=== PATIENT | male | born 1940 | race Caucasian/White ===

== ENCOUNTER 2018-04-29 23:03 | Inpatient (IN) | payer MEDICARE ==
[~2018-04-29] VITALS: Ht 182.9 cm; Wt 202.8 kg
[~2018-04-29 23:03] MED LIST: ASCO500; ASCO500 PO; ATEN25; CEPH500 PO; CHOL10002 PO; CIPR500 PO; FINA5 PO; FISH OIL OMEGA1 EAC2 PO; FLUC100 PO; FURO40 PO; GLIP10ER PO; GLIP5 PO; IBUHYD; METO10 PO; METR500 PO; MULVITMINF; NYST100P TOP; NYST100TO TOP; OMEP10ER; OMEP40CA12 PO; OTC ANTIDIARRHEAL; OXYC10TA19 PO; PIOG15; POTCHL20ER; POTCIT10 PO; SERT50; SITA100T2 PO; SITA25T2 PO; SULTRIDS PO; TAMS.4ER PO; VIT D3 IV; Vibramycin100 MG PO; ZINC220; [UNRECOGNIZED DRUG - CODE]; [UNRECOGNIZED DRUG - OTHER] PO
[2018-04-29 23:42] LABS: BASOPHILS ABSOLUTE AUTO 0.01 K/mm3 (0.00-0.23); BASOPHILS PERCENT AUTO 0 % (0-2); Hemoglobin 11.5 g/dL (13.5-17.5); LYMPHOCYTES ABSOLUTE AUTO 0.31 K/mm3 (0.84-5.20); LYMPHOCYTES PERCENT AUTO 4 % (21-46); MONOCYTES ABSOLUTE AUTO 0.25 K/mm3 (0.16-1.47); MONOCYTES PERCENT AUTO 3 % (4-13); Mean Corpuscular HGB 30.2 pg (26.0-34.0); Mean Corpuscular HGB Conc 33.8 g/dL (31.5-36.5); Mean Corpuscular Volume 89 fL (80-100); Mean Platelet Volume 10.8 fL (9.1-12.4); Platelet Count 149 K/mm3 (150-400); RDW Coefficient Variation 13.6 % (11.7-14.2); RDW Standard Deviation 44.4 fL (35.1-46.3); Red Blood Cell Count 3.81 M/mm3 (4.30-5.90); White Blood Cell Count 7.86 K/mm3 (4.00-11.30)
[2018-04-29 23:46] LABS: EOSINOPHILS PERCENT AUTO 0 % (0-6); IMMATURE GRAN ABSOLUTE AUTO 0.04 K/mm3 (0.00-0.10); IMMATURE GRAN PERCENT AUTO 1 % (0-1); NEUTROPHILS ABSOLUTE AUTO 7.25 K/mm3 (1.96-9.15); NEUTROPHILS PERCENT AUTO 92 % (41-73)
[2018-04-29 23:52] LABS: Albumin, Blood 2.3 g/dL (3.4-5.0); Albumin/Globulin Ratio 0.5 (0.8-1.8); Bilirubin, Total 1.5 mg/dL (0.1-1.0); Bun/Creatinine Ratio 19.9 (12.0-20.0); Calcium, Blood 7.6 mg/dL (8.5-10.1); Creatinine, Blood 2.01 mg/dL (0.60-1.20); Globulin, Blood 4.3 g/dL (2.2-4.0); Potassium, Blood 4.6 mmol/L (3.5-5.5); Total Protein, Blood 6.6 g/dL (6.4-8.2)
[2018-04-30 00:47] LABS: Source, Urine Clean Catch
[2018-04-30 00:51] LABS: Bilirubin, Urine Neg (Neg); Blood, Urine 5+ (Neg); Glucose Qualitative, Urine Neg (Neg); Ketones, Urine Neg (Neg); Leukocyte Esterase, Urine 1+ (Neg); Nitrite, Urine Neg (Neg); Protein, Urine 3+ (Neg); Specific Gravity, Urine 1.015 (1.003-1.022); Urobilinogen, Urine NORM (Normal)
[2018-04-30 00:59] LABS: Appearance, Urine Clear (Clear); Color, Urine Yellow (P-Yellow)
[2018-04-30 01:04] LABS: Squamous Epithelial Cells Not Seen /hpf (Few); White Blood Cells, Urine 0-2 /hpf (0-5)
[2018-04-30 01:05] LABS: Bacteria Few /hpf
[2018-04-30 01:06] LABS: Amorphous Light (0-Heavy); Hyaline Casts 0-2 /lpf (0-2); Red Blood Cells, Urine 25-50 /hpf (0-2)
[2018-04-30 01:07] LABS: Granular Casts 0-2 /lpf (0)
[2018-04-30 01:56] LABS: Source, Urine Clean Catch
[2018-04-30 01:59] LABS: Appearance, Urine Cloudy (Clear); Bilirubin, Urine Neg (Neg); Blood, Urine 5+ (Neg); Color, Urine Brown (P-Yellow); Glucose Qualitative, Urine Neg (Neg); Ketones, Urine Neg (Neg); Leukocyte Esterase, Urine 2+ (Neg); Nitrite, Urine Neg (Neg); Protein, Urine 3+ (Neg); Specific Gravity, Urine 1.015 (1.003-1.022); Urobilinogen, Urine NORM (Normal)
[2018-04-30 02:08] LABS: Amorphous Heavy (0-Heavy); Bacteria Mod /hpf; Granular Casts 25-50 /lpf (0); Hyaline Casts 0-2 /lpf (0-2); Red Blood Cells, Urine 50-100 /hpf (0-2); Squamous Epithelial Cells Few /hpf (Few)
[2018-04-30] MEDS ORDERED: HYDR1TAB94 PO (14:21)
[2018-04-30 23:57] LABS: Bun/Creatinine Ratio 14.5 (12.0-20.0); Calcium, Blood 6.6 mg/dL (8.5-10.1); Creatinine, Blood 3.38 mg/dL (0.60-1.20); Magnesium, Blood 1.5 mg/dL (1.6-2.4); Potassium, Blood 3.9 mmol/L (3.5-5.5)
[2018-05-01 04:27] LABS: BASOPHILS ABSOLUTE AUTO 0.05 K/mm3 (0.00-0.23); BASOPHILS PERCENT AUTO 0 % (0-2); Hematocrit 28.4 % (37.0-53.0); Hemoglobin 9.7 g/dL (13.5-17.5); LYMPHOCYTES ABSOLUTE AUTO 0.68 K/mm3 (0.84-5.20); LYMPHOCYTES PERCENT AUTO 4 % (21-46); MONOCYTES ABSOLUTE AUTO 0.68 K/mm3 (0.16-1.47); MONOCYTES PERCENT AUTO 4 % (4-13); Mean Corpuscular HGB 30.1 pg (26.0-34.0); Mean Corpuscular HGB Conc 34.2 g/dL (31.5-36.5); Mean Corpuscular Volume 88 fL (80-100); Mean Platelet Volume 10.4 fL (9.1-12.4); Platelet Count 146 K/mm3 (150-400); RDW Coefficient Variation 13.8 % (11.7-14.2); RDW Standard Deviation 44.6 fL (35.1-46.3); Red Blood Cell Count 3.22 M/mm3 (4.30-5.90); White Blood Cell Count 19.35 K/mm3 (4.00-11.30)
[2018-05-01 04:31] LABS: Bun/Creatinine Ratio 15.7 (12.0-20.0); Calcium, Blood 6.8 mg/dL (8.5-10.1); Creatinine, Blood 3.38 mg/dL (0.60-1.20); Potassium, Blood 3.8 mmol/L (3.5-5.5)
[2018-05-01 04:34] LABS: EOSINOPHILS ABSOLUTE AUTO 0.01 K/mm3 (0.00-0.68); EOSINOPHILS PERCENT AUTO 0 % (0-6); IMMATURE GRAN ABSOLUTE AUTO 1.32 K/mm3 (0.00-0.10); IMMATURE GRAN PERCENT AUTO 7 % (0-1); NEUTROPHILS ABSOLUTE AUTO 16.61 K/mm3 (1.96-9.15); NEUTROPHILS PERCENT AUTO 86 % (41-73)
[2018-05-01 04:55] LABS: BAND PERCENT MAN 10 % (0-8); BASOPHILS PERCENT MAN 0 % (0-2); EOSINOPHILS PERCENT MAN 0 % (0-6); LYMPHOCYTES ABSOLUTE MAN 0.96 K/mm3 (0.84-5.20); LYMPHOCYTES PERCENT MAN 5 % (21-46); MONOCYTES ABSOLUTE MAN 0.58 K/mm3 (0.16-1.47); MONOCYTES PERCENT MAN 3 % (4-13); SEG NEUTROPHILS PERCENT MAN 82 % (41-73); TOTAL CELLS COUNTED 100
[2018-05-01 08:43] LABS: Creatinine, Urine Random 54.8 mg/dL (27.00-270.00)
[2018-05-01 08:51] LABS: Creatinine, Urine Random 55.8 mg/dL (27.00-270.00)
[2018-05-01 08:53] LABS: Microalb/Creat Ratio UR, Rand 224.014 mg/g (0.000-30.000)
== END 2018-05-01 20:00 | disposition short-term general hospital (02) | DRG 871 ==
LOC: ER 23:03 → ICUE 04-30 02:26 → PCU 04-30 02:26 → ICUE 04-30 04:00
PROVIDERS: Emergency Medicine; Family Medicine
PROC: 02HV33Z Insertion of Infusion Device into Superior Vena Cava, Percutaneous Approach (ICD-10-PCS; principal; 2018-04-30)
PROC: 3E043XZ Introduction of Vasopressor into Central Vein, Percutaneous Approach (ICD-10-PCS; 2018-04-30)
DX: A41.1 Sepsis due to other specified staphylococcus (principal); R65.21 Severe sepsis with septic shock; G93.41 Metabolic encephalopathy; N17.9 Acute kidney failure, unspecified; Z68.44 Body mass index [BMI] 60.0-69.9, adult; L98.415 Non-pressure chronic ulcer of buttock with muscle involvement without evidence of necrosis; L03.311 Cellulitis of abdominal wall; E11.9 Type 2 diabetes mellitus without complications; Z79.4 Long term (current) use of insulin; E66.01 Morbid (severe) obesity due to excess calories; L89.159 Pressure ulcer of sacral region, unspecified stage; I12.9 Hypertensive chronic kidney disease with stage 1 through stage 4 chronic kidney disease, or unspecified chronic kidney disease; E11.22 Type 2 diabetes mellitus with diabetic chronic kidney disease; N18.3 Chronic kidney disease, stage 3 (moderate); I95.9 Hypotension, unspecified; N13.9 Obstructive and reflux uropathy, unspecified; E11.65 Type 2 diabetes mellitus with hyperglycemia
CPT/HCPCS: 36415; 36556; 51702; 71045; 72192; 80048; 80053; 81001; 82043; 82550; 82570; 82947; 83605; 83690; 83735; 83880; 84300; 85025; 85651; 87040; 87070; 87075; 87086; 87147; 87205; 93005; 93010; 96365; 96367; 99285-25; C1751; C8929; J0610; J0881; J1644; J1815; J2543; J3370; J3475; J7030; J7040; J7050; J7060; Q9957

== ENCOUNTER 2018-07-29 13:21 | Emergency (ER) | payer MEDICARE ==
[~2018-07-29] VITALS: Ht 182.9 cm; Wt 136.1 kg
[~2018-07-29 13:21] MED LIST changes: +BUME2 PO; +Bactrim 400-801 EACH PO; +DOXY100 PO; +GABA300 PO; +Glipizide ER5 MG PO; +HYDR1TAB94 PO; +LINE600 PO; +METPRE4 PO; +PAIN & FEVER500 MG PO; +Pedi-Dri 100,0060 GM TOP; +SANTYL30 GM TOP; +SITA50T2 PO
[2018-07-29] MEDS ORDERED: FINA5 PO (13:35)
[2018-07-29] MEDS ORDERED: TAMS.4ER PO (13:35)
[2018-07-29] MEDS ORDERED: FLUC100 PO (13:35)
[2018-07-29] MEDS ORDERED: SITA50T2 PO (13:36)
[2018-07-29] MEDS ORDERED: GABA300 PO (13:36)
[2018-07-29 14:34] LABS: BASOPHILS ABSOLUTE AUTO 0.03 K/mm3 (0.00-0.23); BASOPHILS PERCENT AUTO 0 % (0-2); EOSINOPHILS ABSOLUTE AUTO 0.53 K/mm3 (0.00-0.68); EOSINOPHILS PERCENT AUTO 6 % (0-6); Hematocrit 31.8 % (37.0-53.0); IMMATURE GRAN ABSOLUTE AUTO 0.04 K/mm3 (0.00-0.10); IMMATURE GRAN PERCENT AUTO 1 % (0-1); LYMPHOCYTES ABSOLUTE AUTO 1.95 K/mm3 (0.84-5.20); LYMPHOCYTES PERCENT AUTO 22 % (21-46); MONOCYTES ABSOLUTE AUTO 0.65 K/mm3 (0.16-1.47); MONOCYTES PERCENT AUTO 8 % (4-13); Mean Corpuscular HGB 29.1 pg (26.0-34.0); Mean Corpuscular HGB Conc 31.4 g/dL (31.5-36.5); Mean Corpuscular Volume 92 fL (80-100); Mean Platelet Volume 9.7 fL (9.1-12.4); NEUTROPHILS ABSOLUTE AUTO 5.52 K/mm3 (1.96-9.15); NEUTROPHILS PERCENT AUTO 63 % (41-73); Platelet Count 179 K/mm3 (150-400); RDW Coefficient Variation 15.6 % (11.7-14.2); Red Blood Cell Count 3.44 M/mm3 (4.30-5.90); White Blood Cell Count 8.72 K/mm3 (4.00-11.30)
[2018-07-29 14:53] LABS: Bun/Creatinine Ratio 19.4 (12.0-20.0); Calcium, Blood 8.2 mg/dL (8.5-10.1); Creatinine, Blood 2.17 mg/dL (0.60-1.20); Potassium, Blood 6.1 mmol/L (3.5-5.5)
[2018-07-29] MEDS ORDERED: Cleocin HCl300 MG PO (16:54)
[2018-07-30] MEDS ORDERED: FLUC100 PO (18:33)
[2018-07-30] MEDS ORDERED: DOXY100 PO (18:34)
[2018-07-30] MEDS ORDERED: SODPOL15SA PO (20:14)
[2018-07-30] MEDS ORDERED: BUME2 PO (20:14)
== END 2018-07-29 18:28 | disposition home or self-care (01) ==
LOC: ER 13:21
PROVIDERS: Emergency Medicine
DX: L03.031 Cellulitis of right toe (principal); E87.5 Hyperkalemia; I12.9 Hypertensive chronic kidney disease with stage 1 through stage 4 chronic kidney disease, or unspecified chronic kidney disease; E11.22 Type 2 diabetes mellitus with diabetic chronic kidney disease; N18.9 Chronic kidney disease, unspecified; E66.9 Obesity, unspecified; Z88.2 Allergy status to sulfonamides; Z88.1 Allergy status to other antibiotic agents; Z79.899 Other long term (current) drug therapy; Z87.11 Personal history of peptic ulcer disease; Z90.49 Acquired absence of other specified parts of digestive tract; Z98.890 Other specified postprocedural states
CPT/HCPCS: 73660; 80048; 85025; 99283-25

== ENCOUNTER 2018-07-30 18:06 | Emergency (ER) | payer MEDICARE ==
[~2018-07-30] VITALS: Ht 182.9 cm; Wt 136.1 kg
[~2018-07-30 18:06] MED LIST changes: +Cleocin HCl300 MG PO
[2018-07-30] MEDS ORDERED: FLUC100 PO (18:33)
[2018-07-30] MEDS ORDERED: DOXY100 PO (18:34)
[2018-07-30 19:28] LABS: BASOPHILS ABSOLUTE AUTO 0.02 K/mm3 (0.00-0.23); BASOPHILS PERCENT AUTO 0 % (0-2); EOSINOPHILS ABSOLUTE AUTO 0.67 K/mm3 (0.00-0.68); EOSINOPHILS PERCENT AUTO 7 % (0-6); Hematocrit 32.5 % (37.0-53.0); Hemoglobin 10.4 g/dL (13.5-17.5); IMMATURE GRAN ABSOLUTE AUTO 0.05 K/mm3 (0.00-0.10); IMMATURE GRAN PERCENT AUTO 1 % (0-1); LYMPHOCYTES ABSOLUTE AUTO 2.25 K/mm3 (0.84-5.20); LYMPHOCYTES PERCENT AUTO 24 % (21-46); MONOCYTES ABSOLUTE AUTO 0.52 K/mm3 (0.16-1.47); MONOCYTES PERCENT AUTO 6 % (4-13); Mean Corpuscular HGB 29.9 pg (26.0-34.0); Mean Corpuscular Volume 93 fL (80-100); Mean Platelet Volume 9.2 fL (9.1-12.4); NEUTROPHILS ABSOLUTE AUTO 5.86 K/mm3 (1.96-9.15); NEUTROPHILS PERCENT AUTO 63 % (41-73); Platelet Count 177 K/mm3 (150-400); RDW Coefficient Variation 15.7 % (11.7-14.2); RDW Standard Deviation 53.6 fL (35.1-46.3); Red Blood Cell Count 3.48 M/mm3 (4.30-5.90); White Blood Cell Count 9.37 K/mm3 (4.00-11.30)
[2018-07-30 19:51] LABS: Albumin, Blood 2.5 g/dL (3.4-5.0); Albumin/Globulin Ratio 0.6 (0.8-1.8); Bilirubin, Total 0.3 mg/dL (0.1-1.0); Bun/Creatinine Ratio 22.3 (12.0-20.0); Calcium, Blood 8.3 mg/dL (8.5-10.1); Creatinine, Blood 1.93 mg/dL (0.60-1.20); Globulin, Blood 4.1 g/dL (2.2-4.0); Total Protein, Blood 6.6 g/dL (6.4-8.2)
[2018-07-30 19:52] LABS: Potassium, Blood 6.1 mmol/L (3.5-5.5)
[2018-07-30] MEDS ORDERED: SODPOL15SA PO (20:14)
[2018-07-30] MEDS ORDERED: BUME2 PO (20:14)
== END 2018-07-30 21:55 | disposition home or self-care (01) ==
LOC: ER 18:06
PROVIDERS: Emergency Medicine
DX: E87.5 Hyperkalemia (principal); E11.22 Type 2 diabetes mellitus with diabetic chronic kidney disease; I12.9 Hypertensive chronic kidney disease with stage 1 through stage 4 chronic kidney disease, or unspecified chronic kidney disease; N18.9 Chronic kidney disease, unspecified; L03.031 Cellulitis of right toe; Z88.8 Allergy status to other drugs, medicaments and biological substances; Z88.2 Allergy status to sulfonamides; Z88.1 Allergy status to other antibiotic agents; Z79.899 Other long term (current) drug therapy; E11.9 Type 2 diabetes mellitus without complications; E66.01 Morbid (severe) obesity due to excess calories
CPT/HCPCS: 36415; 80053; 85025; 93005; 93010; 96365; 96375; 99285-25; J1940

== ENCOUNTER 2019-06-10 17:00 | Inpatient (IN) | payer MEDICARE ==
[~2019-06-10] VITALS: Ht 182.9 cm; Wt 142.5 kg
[~2019-06-10 17:00] MED LIST changes: +SODPOL15SA PO
[2019-06-10 17:25] LABS: Hematocrit 34.3 % (37.0-53.0); Hemoglobin 11.1 g/dL (13.5-17.5); Mean Corpuscular HGB 29.7 pg (26.0-34.0); Mean Corpuscular HGB Conc 32.4 g/dL (31.5-36.5); Mean Corpuscular Volume 92 fL (80-100); Mean Platelet Volume 9.6 fL (9.1-12.4); Platelet Count 122 K/mm3 (150-400); RDW Coefficient Variation 15.4 % (11.7-14.2); RDW Standard Deviation 51.8 fL (35.1-46.3); Red Blood Cell Count 3.74 M/mm3 (4.30-5.90); White Blood Cell Count 8.29 K/mm3 (4.00-11.30)
[2019-06-10 17:33] LABS: Source, Urine Clean Catch
[2019-06-10 17:43] LABS: Bilirubin, Urine Neg (Neg); Blood, Urine 2+ (Neg); Glucose Qualitative, Urine Neg (Neg); Ketones, Urine Neg (Neg); Leukocyte Esterase, Urine Neg (Neg); Nitrite, Urine Neg (Neg); Protein, Urine 4+ (Neg); Urobilinogen, Urine NORM (Normal)
[2019-06-10 17:45] LABS: BAND PERCENT MAN 15 % (0-8); BASOPHILS PERCENT MAN 0 % (0-2); EOSINOPHILS PERCENT MAN 0 % (0-6); LYMPHOCYTES ABSOLUTE MAN 0.08 K/mm3 (0.84-5.20); LYMPHOCYTES PERCENT MAN 1 % (21-46); MONOCYTES PERCENT MAN 0 % (4-13); SEG NEUTROPHILS PERCENT MAN 84 % (41-73); TOTAL CELLS COUNTED 100
[2019-06-10 17:48] LABS: Alanine Aminotransfer (ALT/SGP 19 U/L (12-78); Albumin, Blood 3.3 g/dL (3.4-5.0); Albumin/Globulin Ratio 1.1 (0.8-1.8); Alk Phos 86 U/L (50-136); Anion Gap 8 mmol/L (6-16); Aspartate Aminotrans (AST/SGOT 12 U/L (12-37); Blood Urea Nitrogen 32 mg/dL (8-24); Bun/Creatinine Ratio 20.1 (12.0-20.0); CO2, Blood 16 mmol/L (21-32); Chloride, Blood 113 mmol/L (98-108); Creatinine, Blood 1.59 mg/dL (0.60-1.20); Globulin, Blood 3.1 g/dL (2.2-4.0); Glomerular Filtration Rate 45 (60-); Glucose, Blood 165 mg/dL (70-99); Potassium, Blood 4.9 mmol/L (3.5-5.5); Sodium, Blood 137 mmol/L (136-145); Total Protein, Blood 6.4 g/dL (6.4-8.2); Troponin I <0.015 ng/mL (0.000-0.040)
[2019-06-10 17:56] LABS: Appearance, Urine Clear (Clear); Color, Urine Yellow (P-Yellow)
[2019-06-10 18:00] LABS: Bacteria Few /hpf; Red Blood Cells, Urine 0-2 /hpf (0-2); Squamous Epithelial Cells Rare /hpf (Few); White Blood Cells, Urine 0-2 /hpf (0-5)
[2019-06-10 18:01] LABS: Amorphous Mod (0-Heavy); Hyaline Casts 0-2 /lpf (0-2); Mucus Light (0-Heavy)
[2019-06-10] MEDS ORDERED: SITA100T2 PO (19:23)
[2019-06-10] MEDS ORDERED: Ipratropium Bro15 ML (19:23)
[2019-06-10] MEDS ORDERED: Potassium Chlo20 ME1 PO (19:24)
[2019-06-10] MEDS ORDERED: Hydrocodone-Ap1 EA20 PO (19:53)
[2019-06-10] MEDS ORDERED: FURO40 PO (19:54)
--- NOTE | 2019-06-10 21:00 | NUR ---
PT ADMITTED FROM ED FOR WEAKNESS AND PNEUMONIA. PT REPORTS GROUND LEVEL FALL R/T WEAKNESS. SLIGHT TEMPERATURE. OTHERWISE, VS WNL. O2 SATS STABLE ON RA. LUNGS CLEAR AND DIMINISHED. ZOSYN GIVEN IN ER. PT ORIENTED TO ROOM AND EDUCATED STREET PHOTOGRAPHER LIGHT.
[2019-06-11 05:33] LABS: Hematocrit 31.5 % (37.0-53.0); Mean Corpuscular HGB 29.8 pg (26.0-34.0); Mean Corpuscular HGB Conc 31.7 g/dL (31.5-36.5); Mean Corpuscular Volume 94 fL (80-100); Mean Platelet Volume 10.5 fL (9.1-12.4); Platelet Count 119 K/mm3 (150-400); RDW Coefficient Variation 15.6 % (11.7-14.2); RDW Standard Deviation 53.1 fL (35.1-46.3); Red Blood Cell Count 3.36 M/mm3 (4.30-5.90); White Blood Cell Count 14.48 K/mm3 (4.00-11.30)
[2019-06-11 05:51] LABS: Albumin, Blood 2.7 g/dL (3.4-5.0); Albumin/Globulin Ratio 0.9 (0.8-1.8); Bilirubin, Total 1.3 mg/dL (0.1-1.0); Bun/Creatinine Ratio 19.3 (12.0-20.0); Calcium, Blood 8.1 mg/dL (8.5-10.1); Creatinine, Blood 1.76 mg/dL (0.60-1.20); Potassium, Blood 4.6 mmol/L (3.5-5.5); Total Protein, Blood 5.7 g/dL (6.4-8.2)
[2019-06-11 09:43] LABS: Adenovirus Not Detected (NOT DETECT); Bordetella pertussis Not Detected (NOT DETECT); Chlamydophila pneumoniae Not Detected (NOT DETECT); Coronavirus 229E Not Detected (NOT DETECT); Coronavirus HKU1 Not Detected (NOT DETECT); Coronavirus NL63 Not Detected (NOT DETECT); Coronavirus OC43 Not Detected (NOT DETECT); Human Metapneumovirus Not Detected (NOT DETECT); Human Rhinovirus/Enterovirus Not Detected (NOT DETECT); Influenza A Not Detected (NOT DETECT); Influenza A/2009-H1 Not Detected (NOT DETECT); Influenza A/H1 Not Detected (NOT DETECT); Influenza A/H3 Not Detected (NOT DETECT); Influenza B Not Detected (NOT DETECT); Parainfluenza Virus 1 Not Detected (NOT DETECT); Parainfluenza Virus 2 Not Detected (NOT DETECT); Parainfluenza Virus 3 Not Detected (NOT DETECT); Parainfluenza Virus 4 Not Detected (NOT DETECT); Respiratory Syncytial Virus Not Detected (NOT DETECT)
[2019-06-11 09:44] LABS: Mycoplasma pneumoniae Not Detected (NOT DETECT)
--- NOTE | 2019-06-11 17:27 | NUR ---
SUMMARY PT RESTING QUIETLY IN BED, PLEASANT AND COOPERATIVE WITH CARE, PT WITH AN OBESE ABD AND PANNUS, R SIDE IS RED AND HARD, PT HAS A SMALL 1CM X 1CM OPEN AREA TO HIS COCCYX CURRENTLY OPEN TO AIR, NO DRAINAGE, SKIN PINK, PT REPORTS IT HAS TAKEN A YEAR TO HEAL, PT ABLE TO ASSIST WITH TURNING IN THE BED AND ASSIST WITH THE URINAL, PT'S CAREGIVER HAS BEEN IN TO VISIT, SHE DOES ASSIST IN HIS BEDSIDE CARE WELL, PT'S OSTOMY WITH LIQUID OUTPUT, VSS, NO ACUTE CHANGES, WILL CONT TO MONITOR
--- NOTE | 2019-06-12 04:25 | NUR ---
MANUFACTURING ELECTRICIAN SUMMARY Patient very weak and still gets SOB with minimal exertion. Also, right anterior lower abdomen is firm\red and warm to touch. looks like cellulitis. patient comfortable through night. no complaints of discomfort with exception of right distal extremity and pain was relieved with elevation and warm blanket. VSS, lung sounds still coarse in bases and diminished throughout all mayorga. Sputum sent yesterday. still awaiting final results.
[2019-06-12 04:53] LABS: BASOPHILS ABSOLUTE AUTO 0.02 K/mm3 (0.00-0.23); BASOPHILS PERCENT AUTO 0 % (0-2); EOSINOPHILS ABSOLUTE AUTO 0.19 K/mm3 (0.00-0.68); EOSINOPHILS PERCENT AUTO 2 % (0-6); Hematocrit 30.6 % (37.0-53.0); IMMATURE GRAN ABSOLUTE AUTO 0.12 K/mm3 (0.00-0.10); IMMATURE GRAN PERCENT AUTO 1 % (0-1); LYMPHOCYTES ABSOLUTE AUTO 1.06 K/mm3 (0.84-5.20); LYMPHOCYTES PERCENT AUTO 10 % (21-46); MONOCYTES ABSOLUTE AUTO 0.29 K/mm3 (0.16-1.47); MONOCYTES PERCENT AUTO 3 % (4-13); Mean Corpuscular HGB 29.9 pg (26.0-34.0); Mean Corpuscular HGB Conc 32.7 g/dL (31.5-36.5); Mean Platelet Volume 10.3 fL (9.1-12.4); NEUTROPHILS ABSOLUTE AUTO 9.26 K/mm3 (1.96-9.15); NEUTROPHILS PERCENT AUTO 85 % (41-73); Platelet Count 120 K/mm3 (150-400); RDW Coefficient Variation 15.6 % (11.7-14.2); RDW Standard Deviation 51.7 fL (35.1-46.3); Red Blood Cell Count 3.35 M/mm3 (4.30-5.90); White Blood Cell Count 10.94 K/mm3 (4.00-11.30)
[2019-06-12 04:54] LABS: Mean Corpuscular Volume 91 fL (80-100)
[2019-06-12 05:17] LABS: Magnesium, Blood 1.9 mg/dL (1.6-2.4)
[2019-06-12 05:45] LABS: Albumin, Blood 2.4 g/dL (3.4-5.0); Albumin/Globulin Ratio 0.8 (0.8-1.8); Bilirubin, Total 0.7 mg/dL (0.1-1.0); Bun/Creatinine Ratio 19.5 (12.0-20.0); Calcium, Blood 7.9 mg/dL (8.5-10.1); Creatinine, Blood 2.1 mg/dL (0.60-1.20); Potassium, Blood 4.6 mmol/L (3.5-5.5); Total Protein, Blood 5.4 g/dL (6.4-8.2)
--- NOTE | 2019-06-12 08:00 | NUR ---
PT. HAS AN IV IN HIS LEFT AC BUT THERE ISN'T ANY DOCUMENTATION ON WHEN IT WAS PLACED. IS PATENT AND INTACT.
--- NOTE | 2019-06-12 18:29 | NUR ---
PT. LYING QUIETLY WATCHING T.V. DENIES PAIN OR NAUSEA. PENIS WAS ELEVATED ON PILLOW CASES BECAUSE OF EDEMA. PT. IS VERY ENDEMATOUS T/O. PT. HAD A BATH TODAY AND A NEW OSTOMY APPLIANCE AND MEPILEX PLACED ON THE COCCYX. ALBUMIN STARTED TODAY. BLOOD SUGARS HAVE NOT NEEDED COVERING TODAY.
--- NOTE | 2019-06-13 07:30 | NUR ---
Shift Summary Patient slept intermittently between cares overnight. Ostomy appliance maintained. Repositioned to maintain skin integrity. He offered no c/o pain while at rest. some c/o pain while repositioning.
[2019-06-13 08:24] LABS: BASOPHILS ABSOLUTE AUTO 0.01 K/mm3 (0.00-0.23); BASOPHILS PERCENT AUTO 0 % (0-2); EOSINOPHILS PERCENT AUTO 2 % (0-6); Hematocrit 32.7 % (37.0-53.0); Hemoglobin 10.7 g/dL (13.5-17.5); IMMATURE GRAN ABSOLUTE AUTO 0.07 K/mm3 (0.00-0.10); IMMATURE GRAN PERCENT AUTO 1 % (0-1); LYMPHOCYTES ABSOLUTE AUTO 1.06 K/mm3 (0.84-5.20); LYMPHOCYTES PERCENT AUTO 11 % (21-46); MONOCYTES ABSOLUTE AUTO 0.29 K/mm3 (0.16-1.47); MONOCYTES PERCENT AUTO 3 % (4-13); Mean Corpuscular HGB 29.6 pg (26.0-34.0); Mean Corpuscular HGB Conc 32.7 g/dL (31.5-36.5); Mean Corpuscular Volume 90 fL (80-100); Mean Platelet Volume 10.5 fL (9.1-12.4); NEUTROPHILS ABSOLUTE AUTO 8.07 K/mm3 (1.96-9.15); NEUTROPHILS PERCENT AUTO 83 % (41-73); Platelet Count 136 K/mm3 (150-400); RDW Coefficient Variation 15.5 % (11.7-14.2); RDW Standard Deviation 51.1 fL (35.1-46.3); Red Blood Cell Count 3.62 M/mm3 (4.30-5.90)
[2019-06-13 08:39] LABS: Calcium, Blood 7.9 mg/dL (8.5-10.1); Creatinine, Blood 2.14 mg/dL (0.60-1.20)
--- NOTE | 2019-06-13 11:15 | NUR ---
JUST CAME OUT OF PT. ROOM AFTER GIVING BEDBATH CHANGING BEDDING, PLACING LIFT SHEET AND CHANGING OSTOMY. PT'S OSTOMY FAILED AND FECES POURED OUT FROM UNDER APPLIANCE. ACQUIRED APPLIANCE AND BAG FROM SURGICAL FLOOR. WHEN I HAD STARTED PLACING THE APPLIANCE THE PT'S CAREGIVER SHOWED UP WITH HIS HOME APPLIANCE. LET HER KNOW I WAS ALREADY PLACING ONE. SHE STATES I GUARANTEE IT WONT STAY BUT GO AHEAD WITH IT. WHEN FINISHED WITH PUTTING ON OSTOMY I PLACED A 14 HEBREW DO CATHETER TO PREVENT FURTHER BREAKDOWN. PT'S CAREGIVER KEPT SAYING THATS GOING TO FAIL YOU JUST WAIT AND SEE. AT THIS POINT THE APPLIANCE LOOKS GOOD WITHOUT ANY LEAKS.
--- NOTE | 2019-06-13 14:30 | NUR ---
PT. STEPPED INTO BERNABE WITH HANDS ON HIPS AND SAID I TOLD YOU IT WASN'T GOING TO HOLD, ITS STARTING TO GET WET ON THE FLANGE. TOLD PT IF SHE WANTED TO SHE COULD GO AHEAD AND PLACE THE HOME APPLIANCE.
[2019-06-13 15:41] LABS: Source, Urine Clean Catch
[2019-06-13 15:45] LABS: Appearance, Urine Hazy (Clear); Bilirubin, Urine Neg (Neg); Blood, Urine 1+ (Neg); Color, Urine Yellow (P-Yellow); Glucose Qualitative, Urine Neg (Neg); Ketones, Urine Neg (Neg); Leukocyte Esterase, Urine Neg (Neg); Nitrite, Urine Neg (Neg); Protein, Urine 1+ (Neg); Urobilinogen, Urine NORM (Normal)
[2019-06-13 16:16] LABS: Bacteria Few /hpf; Red Blood Cells, Urine 0-2 /hpf (0-2); Squamous Epithelial Cells Few /hpf (Few)
[2019-06-13 16:17] LABS: Amorphous Light (0-Heavy); Hyaline Casts 0-2 /lpf (0-2)
--- NOTE | 2019-06-13 19:05 | NUR ---
PT. LYING QUIETLY AFTER EATING. NO LEAKING NOTED ON THE APPLIANCE AT THIS TIME. PT. STOOD WITH PT AT BEDSIDE WITH A FWW. TOLERATED WELL. NO OTHER NOTEABLE CHANGES THIS SHIFT.
[2019-06-14 05:23] LABS: BASOPHILS ABSOLUTE AUTO 0.01 K/mm3 (0.00-0.23); BASOPHILS PERCENT AUTO 0 % (0-2); EOSINOPHILS ABSOLUTE AUTO 0.23 K/mm3 (0.00-0.68); EOSINOPHILS PERCENT AUTO 3 % (0-6); Hematocrit 29.5 % (37.0-53.0); Hemoglobin 9.5 g/dL (13.5-17.5); IMMATURE GRAN ABSOLUTE AUTO 0.03 K/mm3 (0.00-0.10); IMMATURE GRAN PERCENT AUTO 0 % (0-1); LYMPHOCYTES ABSOLUTE AUTO 0.96 K/mm3 (0.84-5.20); LYMPHOCYTES PERCENT AUTO 14 % (21-46); MONOCYTES ABSOLUTE AUTO 0.33 K/mm3 (0.16-1.47); MONOCYTES PERCENT AUTO 5 % (4-13); Mean Corpuscular HGB Conc 32.2 g/dL (31.5-36.5); Mean Corpuscular Volume 90 fL (80-100); Mean Platelet Volume 10.2 fL (9.1-12.4); NEUTROPHILS ABSOLUTE AUTO 5.36 K/mm3 (1.96-9.15); NEUTROPHILS PERCENT AUTO 78 % (41-73); Platelet Count 130 K/mm3 (150-400); RDW Coefficient Variation 15.2 % (11.7-14.2); RDW Standard Deviation 50.3 fL (35.1-46.3); Red Blood Cell Count 3.28 M/mm3 (4.30-5.90); White Blood Cell Count 6.92 K/mm3 (4.00-11.30)
--- NOTE | 2019-06-14 05:29 | NUR ---
Shift Summary Patient slept intermittently overnight. Assisted to reposition q2 hours. Ostomy appliance remained intact. Assisted to shave his face per Pt request this AM.
[2019-06-14 05:40] LABS: Albumin, Blood 2.5 g/dL (3.4-5.0); Albumin/Globulin Ratio 0.8 (0.8-1.8); Bilirubin, Total 0.6 mg/dL (0.1-1.0); Bun/Creatinine Ratio 23.3 (12.0-20.0); Calcium, Blood 7.6 mg/dL (8.5-10.1); Creatinine, Blood 2.1 mg/dL (0.60-1.20); Magnesium, Blood 1.8 mg/dL (1.6-2.4); Potassium, Blood 3.8 mmol/L (3.5-5.5); Total Protein, Blood 5.5 g/dL (6.4-8.2)
--- NOTE | 2019-06-14 18:23 | NUR ---
PT ALERT AND ORIENTED THROUGHOUT THIS SHIFT. PT WORKED WITH PT/OT THIS SHIFT. PT UP IN CHAIR FOR BREAKFAST, LUNCH, AND DINNER. PT TRANSFERED TO CHAIR WITH MINIMAL 1 PERSON ASSIST. PT CURRENTLY UP IN CHAIR EATING DINNER. CALL LIGHT IN REACH. WILL CONTINUE TO MONITOR.
--- NOTE | 2019-06-15 02:59 | NUR ---
TURNED PATIENT AND CHANGED LINEN. GAVE A PARTIAL BATH. PATIENT HAS WEAPING OF YELLOW FLUID FROM THE RT LOWER HALF OF HIS PANUS. SKIN FOLDS CLEANED AND NYSTATIN APPLIED TO CLEAN DRY SKIN. AREA WHERE LATERAL RT PORTION OF THE PANUS FOLDS OVER HIS RT LEG HAS 4 IN X 6 IN LONG EXCORIATED SKIN. NEW LINEN AND GOWN. ILLIOSTOMY APPLIANCE IS SECURE WITH GREEN THICK LIQUID. COCCYX DRESSING SECURE AND IN PLACE OVER SMALL HEALING COCCYX WOULD. THIS WOULD HAS BEEN GETTING SMALLER INCREMENTALLY OVER THE PAST YEAR, PER THE PATIENT.
[2019-06-15 05:25] LABS: BASOPHILS ABSOLUTE AUTO 0.02 K/mm3 (0.00-0.23); BASOPHILS PERCENT AUTO 0 % (0-2); EOSINOPHILS ABSOLUTE AUTO 0.25 K/mm3 (0.00-0.68); EOSINOPHILS PERCENT AUTO 4 % (0-6); Hematocrit 30.8 % (37.0-53.0); Hemoglobin 9.9 g/dL (13.5-17.5); IMMATURE GRAN ABSOLUTE AUTO 0.05 K/mm3 (0.00-0.10); IMMATURE GRAN PERCENT AUTO 1 % (0-1); LYMPHOCYTES ABSOLUTE AUTO 1.04 K/mm3 (0.84-5.20); LYMPHOCYTES PERCENT AUTO 18 % (21-46); MONOCYTES ABSOLUTE AUTO 0.38 K/mm3 (0.16-1.47); MONOCYTES PERCENT AUTO 7 % (4-13); Mean Corpuscular HGB 28.9 pg (26.0-34.0); Mean Corpuscular HGB Conc 32.1 g/dL (31.5-36.5); Mean Corpuscular Volume 90 fL (80-100); Mean Platelet Volume 10.4 fL (9.1-12.4); NEUTROPHILS ABSOLUTE AUTO 4.01 K/mm3 (1.96-9.15); NEUTROPHILS PERCENT AUTO 70 % (41-73); Platelet Count 144 K/mm3 (150-400); RDW Coefficient Variation 15.2 % (11.7-14.2); Red Blood Cell Count 3.42 M/mm3 (4.30-5.90); White Blood Cell Count 5.75 K/mm3 (4.00-11.30)
[2019-06-15 05:44] LABS: Albumin, Blood 2.8 g/dL (3.4-5.0); Bilirubin, Total 0.6 mg/dL (0.1-1.0); Calcium, Blood 8.1 mg/dL (8.5-10.1); Creatinine, Blood 1.92 mg/dL (0.60-1.20); Globulin, Blood 2.9 g/dL (2.2-4.0); Potassium, Blood 4.1 mmol/L (3.5-5.5); Total Protein, Blood 5.7 g/dL (6.4-8.2)
--- NOTE | 2019-06-15 06:19 | NUR ---
nO ACUTE CHANGES THIS AM. PATIENT IS AWAKE AND WATCHING TV.
[2019-06-15] MEDS ORDERED: GABA300 PO (12:37)
[2019-06-15] MEDS ORDERED: Nystatin15 GM TOP (12:38)
[2019-06-15] MEDS ORDERED: Pedi-Dri 100,0060 GM TOP (12:39)
[2019-06-15] MEDS ORDERED: CEPH500 PO (12:40)
--- NOTE | 2019-06-15 14:37 | NUR ---
DISCHARGE DISCAHRGE MEDICATIONS AND INSTRUCTIONS EXPLAINED TO PATIENT. PATIENT STATED UNDERSTANDING. FOLLOW UP APPOINTMENT TO BE MADE BY CARE MANAGEMENT. KARIE WILL BE CALLED AT HOME. IV REMOVED WITHOUT DIFFICULTY. DO REMOVED. BELONGINGS WITH PATIENT. PATIENT TRANSFERED TO PRIVATE VEHICLE VIA WHEELCHAIR. CARGEGIVER TO TRANSPORT PATIENT HOME.
== END 2019-06-15 14:37 | disposition home or self-care (01) | DRG 291 ==
LOC: ER 17:00 → MEDS 17:01 → ENPENDDIS 06-15 14:16 → MEDS 06-15 14:37
PROVIDERS: Emergency Medicine; Internal Medicine; ADMIT Internal Medicine
DX: I13.0 Hypertensive heart and chronic kidney disease with heart failure and stage 1 through stage 4 chronic kidney disease, or unspecified chronic kidney disease (principal); J18.9 Pneumonia, unspecified organism; L03.311 Cellulitis of abdominal wall; Z68.42 Body mass index [BMI] 45.0-49.9, adult; E11.22 Type 2 diabetes mellitus with diabetic chronic kidney disease; N18.3 Chronic kidney disease, stage 3 (moderate); I50.9 Heart failure, unspecified; E66.01 Morbid (severe) obesity due to excess calories; B37.2 Candidiasis of skin and nail; B95.1 Streptococcus, group B, as the cause of diseases classified elsewhere; N40.0 Benign prostatic hyperplasia without lower urinary tract symptoms; Z86.14 Personal history of Methicillin resistant Staphylococcus aureus infection; Z88.1 Allergy status to other antibiotic agents; Z88.2 Allergy status to sulfonamides; Z88.8 Allergy status to other drugs, medicaments and biological substances
CPT/HCPCS: 0099U; 36415; 71046; 80048; 80053; 81001; 82947; 83605; 83735; 83880; 84484; 85025; 85027; 87040; 87147; 93005; 93010; 94660; 94762; 96365; 97110; 97116; 97162; 97165; 97530; 99285-25; A9270-GY; J0456; J0696; J1644; J1650; J1940; J2543; J7050; P9046

== ENCOUNTER 2023-07-28 10:58 | Inpatient (IN) | payer MEDICARE ==
[~2023-07-28] VITALS: Ht 180.3 cm; Wt 125.0 kg
[~2023-07-28 10:58] MED LIST changes: +Hydrocodone-Ap1 EA20 PO; +Ipratropium Bro15 ML; +Nystatin15 GM TOP; +Potassium Chlo20 ME1 PO
[2023-07-28 12:14] LABS: Hematocrit 31.3 % (37.0-53.0); Hemoglobin 10.6 g/dL (13.5-17.5); Mean Corpuscular HGB 30.7 pg (26.0-34.0); Mean Corpuscular HGB Conc 33.9 g/dL (31.5-36.5); Mean Corpuscular Volume 91 fL (80-100); Mean Platelet Volume 10.6 fL (9.1-12.4); Platelet Count 74 K/mm3 (150-400); RDW Coefficient Variation 15.1 % (11.7-14.2); RDW Standard Deviation 49.5 fL (35.1-46.3); Red Blood Cell Count 3.45 M/mm3 (4.30-5.90); White Blood Cell Count 10.57 K/mm3 (4.00-11.30)
[2023-07-28 12:16] LABS: Source, Urine Voided
[2023-07-28 12:32] LABS: Albumin, Blood 2.3 g/dL (3.4-5.0); Albumin/Globulin Ratio 0.7 (0.8-1.8); Bilirubin, Total 0.8 mg/dL (0.1-1.0); Bun/Creatinine Ratio 28.9 (12.0-20.0); Calcium, Blood 7.7 mg/dL (8.5-10.1); Creatinine, Blood 1.94 mg/dL (0.60-1.20); Globulin, Blood 3.4 g/dL (2.2-4.0); Potassium, Blood 4.9 mmol/L (3.5-5.5); Total Protein, Blood 5.7 g/dL (6.4-8.2)
[2023-07-28 12:32] LABS: Appearance, Urine Cloudy (Clear); Bilirubin, Urine Neg (Neg); Blood, Urine 5+ (Neg); Color, Urine Yellow (P-Yellow); Glucose Qualitative, Urine Neg (Neg); Ketones, Urine Neg (Neg); Leukocyte Esterase, Urine 3+ (Neg); Nitrite, Urine Neg (Neg); Protein, Urine 3+ (Neg); Specific Gravity, Urine 1.015 (1.003-1.022); Urobilinogen, Urine NORM (Normal)
[2023-07-28 12:45] LABS: Influenza A, PCR NEGATIVE (NEGATIVE); Influenza B, PCR NEGATIVE (NEGATIVE); Resp Syncytial Virus, PCR NEGATIVE (NEGATIVE)
[2023-07-28 12:46] LABS: SARS-Cov-2 (COVID-19) PCR, MMC POSITIVE (NEGATIVE)
[2023-07-28 12:54] LABS: Other Crystals Many /hpf
[2023-07-28 12:55] LABS: White Blood Cells, Urine 50-100 /hpf (0-5)
[2023-07-28 13:00] LABS: Squamous Epithelial Cells Rare /hpf (Few)
[2023-07-28 13:01] LABS: Amorphous Light (0-Heavy); Bacteria Many /hpf; Mucus Light (0-Heavy)
[2023-07-28 13:05] LABS: BAND PERCENT MAN 18 % (0-8); BASOPHILS PERCENT MAN 0 % (0-2); EOSINOPHILS ABSOLUTE MAN 0.21 K/mm3 (0.00-0.68); EOSINOPHILS PERCENT MAN 2 % (0-6); LYMPHOCYTES ABSOLUTE MAN 0.31 K/mm3 (0.84-5.20); LYMPHOCYTES PERCENT MAN 3 % (21-46); MONOCYTES PERCENT MAN 0 % (4-13); NEUTROPHILS ABSOLUTE MAN 10.04 K/mm3 (1.96-9.15); SEG NEUTROPHILS PERCENT MAN 77 % (41-73); TOTAL CELLS COUNTED 100
[2023-07-28 17:06] VITALS: BP 124/106
--- NOTE | 2023-07-28 18:21 | NUR ---
ADMISSION NOTE PT ARRIVED TO PCU AT APPROX. 1720. HE IS ALERT AND ORIENTED X 4 BUT SWINOMISH. HR NOTED TO BE SINUS BYRON 40'S-50'S. HE DENIES FEELING LIGHTHEADED/DIZZY. HE DENIES FEELINGS OF CHEST PAIN/PRESSURE, NAUSEA/VOMITTING. BP STABLE AND HE IS ON RA W/ SPO2 >95%. COLOSTOMY NOTED IN RLQ. HE REPORTED BEING AMBULATORY W/ WALKER AT HOME BUT HAS DIFFICULTY REPOSITIONING SELF IN BED DUE TO OBESITY. IV IN R FOREARM IS PATENT AND SALINE LOCKED. ATROPINE IS AT BEDSIDE. THIS RN ASSISTED PT W/ CALLING CAREGIVER TO PROVIDE UPDATE. CALL LIGHT IS W/IN REACH AND HE HAS DEMONSTRATED APPROPRIATE CALL LIGHT USE.
[2023-07-28] MEDS ORDERED: MUPIROCIN2210 (18:37)
[2023-07-28] MEDS ORDERED: AMOCLA500 PO (18:40)
[2023-07-28 21:30] VITALS: BP 150/53
[2023-07-28 23:06] VITALS: BP 151/60
--- NOTE | 2023-07-29 04:12 | NUR ---
SHIFT SUMMARY. PT HAS BEEN DOING WELL THIS SHIFT, NO ACUTE CHANGES. PT REMAINS AOX3-4 BUT VERY FORGETFUL. HAS REQUIRED REPEATED DIRECTION ORDER CHECKER PACKER PROCESSER LIGHT USE. NOW USES MOSTLY APPROPRIATELY. HAS ONLY REPORTED PAIN WITH TURNS AND REPOSITIONING, PAIN DISSIPATES WHEN PT ALLOWED TO REST UNBOTHERED. PT PLEASANT AND COOPERATIVE WITH CARE. HR HAS BEEN STABLE, HOLDING IN THE 50s-70s THROUGHOUT SHIFT. PT HAS BEEN ABLE TO SLEEP ONLY SPORADICALLY. Q2 TURNS. VS STABLE. CONTINUES TO MAINTAIN SATURATIONS >93% ON ROOM AIR. ABLE TO MAKE NEEDS KNOWN. MEPILEX ON RECTUM REMAINS C/D/I. BED LOCKED IN LOWEST POSITION. CALL LIGHT LEFT WITHIN REACH. CONTINUING TO MONITOR.
[2023-07-29 04:23] LABS: Hematocrit 31.4 % (37.0-53.0); Hemoglobin 10.6 g/dL (13.5-17.5); Mean Corpuscular HGB 30.6 pg (26.0-34.0); Mean Corpuscular HGB Conc 33.8 g/dL (31.5-36.5); Mean Corpuscular Volume 91 fL (80-100); Mean Platelet Volume 11.6 fL (9.1-12.4); Platelet Count 73 K/mm3 (150-400); RDW Coefficient Variation 14.9 % (11.7-14.2); RDW Standard Deviation 49.6 fL (35.1-46.3); Red Blood Cell Count 3.46 M/mm3 (4.30-5.90); White Blood Cell Count 9.85 K/mm3 (4.00-11.30)
[2023-07-29 04:36] VITALS: BP 125/68
[2023-07-29 04:36] LABS: Calcium, Blood 7.8 mg/dL (8.5-10.1); Creatinine, Blood 1.84 mg/dL (0.60-1.20); Potassium, Blood 4.7 mmol/L (3.5-5.5)
[2023-07-29 04:53] LABS: BAND PERCENT MAN 24 % (0-8); BASOPHILS ABSOLUTE MAN 0.09 K/mm3 (0.00-0.23); BASOPHILS PERCENT MAN 1 % (0-2); EOSINOPHILS ABSOLUTE MAN 0.09 K/mm3 (0.00-0.68); EOSINOPHILS PERCENT MAN 1 % (0-6); LYMPHOCYTES ABSOLUTE MAN 0.59 K/mm3 (0.84-5.20); LYMPHOCYTES PERCENT MAN 6 % (21-46); MONOCYTES ABSOLUTE MAN 0.19 K/mm3 (0.16-1.47); MONOCYTES PERCENT MAN 2 % (4-13); NEUTROPHILS ABSOLUTE MAN 8.86 K/mm3 (1.96-9.15); SEG NEUTROPHILS PERCENT MAN 66 % (41-73); TOTAL CELLS COUNTED 100
[2023-07-29 08:28] VITALS: BP 142/78
[2023-07-29 11:33] VITALS: BP 128/53
[2023-07-29 17:15] VITALS: BP 136/65
--- NOTE | 2023-07-29 17:47 | NUR ---
SHIFT SUMMARY: PATIENT IS A&OX3-4 BUT NEEDS REMINDERS ON HOW TO WORK THE CALL LIGHT OR PHONE AT TIMES. PATIENT CONTINUES TO BE ON RA WITH >90% OXYGEN SATS. HE DID HAVE A SLIGHT FEVER THAT WAS MANAGED WITH PO TYLENOL PER EMAR. PATIENT REPORTS PAIN IN HIS BACK WITH MOVEMENT BUT ONCE AT REST PATIENTS PAIN RESOLVES. PATIENT ALSO REPORTED PAIN/TENDERNESS IN BOTH HEELS IN WHICH HEEL PROTECTORS WERE PLACED WHICH HAS IMPROVED HIS HEEL PAIN. PATIENTS HR HAS SUSTAINED BETWEEN 40-60'S BPM. PATIENT HAS BEEN REPOSITIONED THROUGHOUT SHIFT WITH USE OF THE LIFT AND 2 MODERATE PERSON ASSIST. PATIENT DID WORK WITH PHYSICAL THERAPY TODAY AND HE WAS ABLE TO SIT AT THE SIDE OF THE BED AND STAND WITH 2 PERSON MODERATE ASSIST. PATIENT IS TOLERATING PO INTAKE AND IS VOIDING. HIS RLQ OSTOMY HAS BROWN SOFT OUTPUT AND IS INTACT. PATIENT IS LAYING IN BED WITH CALL LIGHT IN REACH.
--- NOTE | 2023-07-29 19:15 | NUR ---
FAMILY CALL RECEIVED A PHONE CALL FROM ASNG (GRANDDAUGHTER) ASKING WHAT THE PLAN IS FOR TOMORROW. EXPLAINED THAT DISCHARGE WITH HOME HEALTH IS BEING PLANNED. SANG EXPLAINED THAT SHE AND ANOTHER FAMILY MEMBER HAVE BEEN PROVIDING CARE AT HOME AND THAT THEY DO NOT FEEL THAT HOME HEALTH IS NECESSARY. SHE STATED THAT THERE IS ALREADY A HOSPITAL BED AND OTHER EQUIPMENT AT HOME. STATED THAT SHE JUST NEEDS TO KNOW WHAT TIME TO PICK HIM UP AND THAT SHE WILL COME AND GET UP. I LET HER KNOW THAT THIS WOULD BE COMMUNICATED TO THE PRIMARY RN AND TO THE NEXT SHIFT FOR DISCHARGE PLANNING. SHE LEFT HER PHONE # ([phone]) AND STATED THAT HER GRANDPA CALLS HER BY HER NICKNAME "FARIHA". NOTIFED ARMIN ALANIZ.
[2023-07-29 20:13] VITALS: BP 119/73
[2023-07-30 01:27] VITALS: BP 126/56
[2023-07-30 04:25] VITALS: BP 138/62
[2023-07-30 04:43] LABS: Hematocrit 32.8 % (37.0-53.0); Hemoglobin 10.8 g/dL (13.5-17.5); Mean Corpuscular HGB 30.2 pg (26.0-34.0); Mean Corpuscular HGB Conc 32.9 g/dL (31.5-36.5); Mean Corpuscular Volume 92 fL (80-100); Mean Platelet Volume 11.9 fL (9.1-12.4); Platelet Count 83 K/mm3 (150-400); RDW Coefficient Variation 14.7 % (11.7-14.2); RDW Standard Deviation 50.1 fL (35.1-46.3); Red Blood Cell Count 3.58 M/mm3 (4.30-5.90); White Blood Cell Count 9.98 K/mm3 (4.00-11.30)
[2023-07-30 04:53] LABS: Bun/Creatinine Ratio 31.1 (12.0-20.0); Calcium, Blood 7.9 mg/dL (8.5-10.1); Creatinine, Blood 1.96 mg/dL (0.60-1.20); Potassium, Blood 4.3 mmol/L (3.5-5.5)
[2023-07-30 05:59] LABS: BAND PERCENT MAN 13 % (0-8); BASOPHILS PERCENT MAN 0 % (0-2); EOSINOPHILS ABSOLUTE MAN 0.19 K/mm3 (0.00-0.68); EOSINOPHILS PERCENT MAN 2 % (0-6); LYMPHOCYTES ABSOLUTE MAN 0.29 K/mm3 (0.84-5.20); LYMPHOCYTES PERCENT MAN 3 % (21-46); MONOCYTES ABSOLUTE MAN 0.49 K/mm3 (0.16-1.47); MONOCYTES PERCENT MAN 5 % (4-13); NEUTROPHILS ABSOLUTE MAN 8.98 K/mm3 (1.96-9.15); SEG NEUTROPHILS PERCENT MAN 77 % (41-73); TOTAL CELLS COUNTED 100
--- NOTE | 2023-07-30 06:35 | NUR ---
SHIFT SUMMERY PT IS ALERT AND ORIENTED X3 W/SOME INTERMITTENT CONFUSION NOTED, ESPECIALLY WHEN FIRST WAKING UP. HE HAS BEEN AFEBRILE OVERNIGHT. PT HAS A OSTOMY ON THE RIGHT SIDE OF HIS ABDOMEN. THE RIGHT SIDE OF HIS ABDOMEN WAS NOTED TO BE HARDENED, RED, AND WARM TO THE TOUCH IN SOME AREAS. PT STATED THAT WAS NOT NEW. HE HAS BEEN IN A JUNCTIONAL RHYTHM W/RATE MOSTLY IN THE 40S, DROPPING INTO THE 30S AT TIMES BUT NOT SUSTAINING-AND HIGH THE 70S AT TIMES. THERE IS ATROPINE AT BEDSIDE-SEE MAR FOR ORDERS. BP HAS BEEN WNL AND PT HAS BEEN ASYMPTOMATIC. HE HAS HAD NO COMPLAINTS OF CHEST PAIN OR PRESSURE OVERNIGHT.
[2023-07-30 07:43] VITALS: BP 130/84
[2023-07-30 15:25] VITALS: BP 134/57
--- NOTE | 2023-07-30 16:58 | NUR ---
SHIFT SUMMARY: PT ALERT AND ORIENTED X3-4. ABLE TO FOLLOW COMMANDS AND MAKE NEEDS RENETTA PT EXPERIENCING HALLUCINATIONS THIS AM, WAS ABLE TO TELL THIS RN "I KNOW THEY ARENT REAL." NOT ACTIVELY EXPERIENCING HALLUCINATIONS/DELUSIONS. STRENGTH WEAK, EQUAL BILATERALLY. BP STABLE. HR REMAINS SB 30'S WHILE SLEEPING, 40'S-50'S WHILE AWAKE, ASYMPTOMATIC. PULSES STRONG AND EQUAL THROUGHOUT. TAKE UP SUPERVISOR UPDATED THIS AM, PLAN TO KEEP PT OVER WEEKEND AND POSSIBLE PACEMAKER PLACEMENT 07/22/23. COLOSTOMY IN PLACE, DRAINING BROWN LIQUID STOOL, APPLIANCE OVERALL C/D/I. PT WITH REDDNESS ON RLQ OF ABDOMEN, WARM TO TOUCH, MD AWARE. PT RECEIVED BEDBATH THIS AFTERNON. TOELRATED WELL. UPDATED GIVEN TO PT BROTHER, WITH PERMISSION. BED IN LOW, CALL LIGHT IN REACH, WILL REPORT TO ONCOMING RN.
[2023-07-30 19:53] VITALS: BP 146/53
[2023-07-31 03:55] LABS: Hemoglobin 10.4 g/dL (13.5-17.5); Mean Corpuscular HGB 30.2 pg (26.0-34.0); Mean Corpuscular HGB Conc 33.5 g/dL (31.5-36.5); Mean Corpuscular Volume 90 fL (80-100); Mean Platelet Volume 11.1 fL (9.1-12.4); Platelet Count 94 K/mm3 (150-400); RDW Coefficient Variation 14.7 % (11.7-14.2); RDW Standard Deviation 48.3 fL (35.1-46.3); Red Blood Cell Count 3.44 M/mm3 (4.30-5.90); White Blood Cell Count 8.19 K/mm3 (4.00-11.30)
[2023-07-31 04:12] LABS: Calcium, Blood 7.7 mg/dL (8.5-10.1); Creatinine, Blood 1.79 mg/dL (0.60-1.20); Potassium, Blood 4.2 mmol/L (3.5-5.5)
[2023-07-31 04:18] LABS: BAND PERCENT MAN 12 % (0-8); BASOPHILS PERCENT MAN 0 % (0-2); EOSINOPHILS ABSOLUTE MAN 0.24 K/mm3 (0.00-0.68); EOSINOPHILS PERCENT MAN 3 % (0-6); LYMPHOCYTES ABSOLUTE MAN 0.81 K/mm3 (0.84-5.20); LYMPHOCYTES PERCENT MAN 10 % (21-46); MONOCYTES ABSOLUTE MAN 0.49 K/mm3 (0.16-1.47); MONOCYTES PERCENT MAN 6 % (4-13); NEUTROPHILS ABSOLUTE MAN 6.63 K/mm3 (1.96-9.15); SEG NEUTROPHILS PERCENT MAN 69 % (41-73); TOTAL CELLS COUNTED 100
[2023-07-31 05:52] VITALS: BP 121/57
--- NOTE | 2023-07-31 06:42 | NUR ---
SHIFT SUMMARY NO ACUTE EVENTS T/O NIGHT. PT A/O X 3. VERY FORGETFUL ESPECIALLY UPON WAKING UP. PT HAS VERY FRAGILE SKIN AND HAS OPEN SORES UNDER PANNUS. AREA CLEANED AND DRIED. PICTURES TAKEN AND IN CHART. ABD RED AND WEEPING. PT PAINFUL WITH CARE AND MOVING BUT COMFORTABLE AT REST. Q2 TURNS. VSS. HR 35-60'S T/O NIGHT. DENIES DIZZINESS WHILE IN BED. WILL REPORT OFF TO ONCOMING RN.
[2023-07-31 08:09] VITALS: BP 139/66
--- NOTE | 2023-07-31 15:15 | NUR ---
WOUND CONSULT PLACED FOR PANNUS EXCORIATIONS AND COCCYX TUNNELING I ASKED SURGICAL CHARGE NURSE PANCHITO FOR ADVICE ON THE PT'S WOUNDS AND I WE PACKED THE PT'S COCCYX WOUND WITH ALIGNATE. THERE IS ABOUT TWO INCHES OF TUNNELING TOWARDS THE PT'S SPINE AND TOWARDS HIS SCROTUM. ONE PIECE OF ALGINATE WAS USE AND ABOTU A TWO INCH TAIL WAS LEFT OUT. A MEPLIX WAS PLACE TO COVER THE WOUND. AN EGG CRATE BED WAS PLACED ON THE PT'S BED FOR EXTRA PADDING. HE IS A Q2 TURN. ON THE PANNUS EXCORIATIONS I PLACED STOMA POWDER TO PROTECT THE OPEN SKIN THEN PLACED THE ORANGE BARRIER CREAM ON THE OPEN AREAS. AN ABD WAS PLACED FOR PADDING. THE PT WAS GIVEN A BED BATH TO HELP PROTECT SKIN INTEGRITY.
[2023-07-31 16:22] VITALS: BP 132/66
--- NOTE | 2023-07-31 17:15 | NUR ---
SHIFT SUMMARY PT IS ALERT AND ORIENTED X3-4. HE IS ABLE TO MAKE HIS NEEDS KNWON AND USES THE CALL LIGHT APPROPRAITELY. THE EVENING GETS CLOSER THE PT IS GETTING MORE FORGETFUL THAN HE WAS AND IS PRESENTING WITH SOME SIGNS OF SUN DOWNING BUT HE HAS BEEN PLEASENT. FOR EXMPLE HE WAS VERY CONFUSED ON HOW TO TURN OFF THE CALL BUTTON LIGHT. HE WAS REDIRECTABLE. THIS MORNING THE PT WAS ANXIOUS ABOUT POSSIBLY HAVING TO GET A PACEMAKER. ON TELE HE HAS BEEN IN A JUNCTION RHYTHM 30'S-60'S. HIS SP02 >90% ON RA AND HE DENIES ANY SOB. HE DID RECIEVER SOME WOUND CARE TODAY, SEE PREVIOUS NOTE FOR MORE INFORMATION. HE HAS BEEN A Q2 TURN, LIFT FOR ANY TYPE OF TRANSFER, RECIEVED A BEDBATH, IS ACHS CBG'S, AND HAD HIS FACE SHAVE. NO ACUTE EVENTS. PT WILL BE NPO FOR POSSBILE PROCEDURE TOMORROW. SEE NOTES FOR ANY UPDATES.
[2023-07-31 20:18] VITALS: BP 145/62
[2023-08-01 03:59] VITALS: BP 116/66
[2023-08-01 04:01] LABS: Hematocrit 31.2 % (37.0-53.0); Hemoglobin 10.6 g/dL (13.5-17.5); Mean Corpuscular HGB 30.5 pg (26.0-34.0); Mean Corpuscular Volume 90 fL (80-100); Mean Platelet Volume 10.8 fL (9.1-12.4); Platelet Count 111 K/mm3 (150-400); RDW Coefficient Variation 14.7 % (11.7-14.2); Red Blood Cell Count 3.48 M/mm3 (4.30-5.90)
[2023-08-01 04:23] LABS: Bun/Creatinine Ratio 38.5 (12.0-20.0); Calcium, Blood 7.6 mg/dL (8.5-10.1); Creatinine, Blood 1.69 mg/dL (0.60-1.20); Potassium, Blood 4.1 mmol/L (3.5-5.5)
[2023-08-01 05:30] LABS: BAND PERCENT MAN 1 % (0-8); BASOPHILS PERCENT MAN 0 % (0-2); EOSINOPHILS ABSOLUTE MAN 0.19 K/mm3 (0.00-0.68); EOSINOPHILS PERCENT MAN 3 % (0-6); LYMPHOCYTES ABSOLUTE MAN 1.91 K/mm3 (0.84-5.20); LYMPHOCYTES PERCENT MAN 29 % (21-46); MONOCYTES ABSOLUTE MAN 0.39 K/mm3 (0.16-1.47); MONOCYTES PERCENT MAN 6 % (4-13); NEUTROPHILS ABSOLUTE MAN 4.09 K/mm3 (1.96-9.15); SEG NEUTROPHILS PERCENT MAN 61 % (41-73); TOTAL CELLS COUNTED 100
--- NOTE | 2023-08-01 06:22 | NUR ---
End of shift note. Pt has had intermittent confusing overnight, needing to be redirected at times. Pt has been cooperative with care. HR 30-40s for most of the shift. Pt continues to verbalize concern about pacemaker procedure without talking to his PCP. Pt has been NPO since midnight. Significant wound issues, care provided. Pt repositioned regularly. Ostomy with moderate output. Pt is able to make needs known, call light is within reach.
[2023-08-01 08:15] VITALS: BP 133/60
[2023-08-01 15:08] VITALS: BP 137/56
--- NOTE | 2023-08-01 17:54 | NUR ---
SHIFT SUMMARY: PT HAS BEEN A&Ox3-4, OCCASIONAL FORGETFULNESS BUT ABLE TO MAKE NEEDS KNOWN AND ANSWERS QUESTIONS APPROPRIATELY. PT DENIES SOB, O2 SATS >93% ON RA. PT CONTINUES TO BE IN JUNCTIONAL RHYTHM, MOSTLY 40s-60s W/OCCASIONAL DROPS INTO 30s BUT NOT SUSTAINING. PT WAS NPO IN PREPARATION FOR PACEMAKER PROCEDURE TODAY, THEN DECIDED AGAINST PROCEDURE. PROVIDER CALLED FAMILY TO UPDATE THEM AND DISCUSS UPCOMING PLAN FOR DISCHARGE HOME. PT HAS SPENT MOST OF THE DAY IN THE BEDSIDE RECLINER, HAS BEEN A 2 PERSON ASSIST W/FWW. OSTOMY TO R ABDOMEN HAS BEEN WNL. PT's SKIN IS DRY AND FRAGILE, REDNESS AND PEELING. BEDBATH AND WOUND CARE/DRESSING CHANGE COMPLETED TODAY. WOUND CARE CONSULTATION CONTINUES PENDING. AT THIS TIME, PT IS IN BEDSIDE RECLINER W/CALL LIGHT IN REACH. WILL CONTINUE TO MONITOR AND TREAT ACCORDINGLY UNTIL CHANGE OF SHIFT.
[2023-08-01 19:54] VITALS: BP 137/61
--- NOTE | 2023-08-01 21:49 | NUR ---
ASSUMED CARE OF PT AT 1915. PER REPORT, WOUND CARE ORDERS IN PT CHART ARE RECOMMENDATIONS FROM GOLF CART ATTENDANT AND RENAL CASE MANAGER. THESE ORDERS WERE FOLLOWED TODAY ON DAY SHIFT AND PT CAREGIVER EXPLAINED THAT PT WAS BEING FOLLOWED BY WOUND CARE CENTER WHO RECOMMENDED LEAVING RECTAL WOUND OPEN TO AIR. AT TIME OF SHIFT CHANGE, WOUND WAS OPEN TO AIR AND REMAINS SUCH NOW. [facility] WOUND CARE CONSULT HAS BEEN PLACED BUT THUS FAR SPOOL CLEANER HAND HAS NOT COMPLETED CONSULT ON PT. CONTINUING TO MONITOR.
[2023-08-02 03:52] VITALS: BP 122/56
[2023-08-02 04:26] LABS: Hematocrit 31.4 % (37.0-53.0); Hemoglobin 10.6 g/dL (13.5-17.5); Mean Corpuscular HGB 30.2 pg (26.0-34.0); Mean Corpuscular HGB Conc 33.8 g/dL (31.5-36.5); Mean Corpuscular Volume 90 fL (80-100); Mean Platelet Volume 10.8 fL (9.1-12.4); Platelet Count 118 K/mm3 (150-400); RDW Coefficient Variation 14.3 % (11.7-14.2); RDW Standard Deviation 46.5 fL (35.1-46.3); Red Blood Cell Count 3.51 M/mm3 (4.30-5.90); White Blood Cell Count 8.05 K/mm3 (4.00-11.30)
[2023-08-02 05:01] LABS: Bun/Creatinine Ratio 39.9 (12.0-20.0); Calcium, Blood 7.5 mg/dL (8.5-10.1); Creatinine, Blood 1.63 mg/dL (0.60-1.20); Magnesium, Blood 2.2 mg/dL (1.6-2.4); Potassium, Blood 3.9 mmol/L (3.5-5.5)
[2023-08-02 05:36] LABS: BASOPHILS PERCENT MAN 0 % (0-2); EOSINOPHILS PERCENT MAN 0 % (0-6); LYMPHOCYTES % ATYPICAL MANUAL 3 % (0-0); LYMPHOCYTES ABSOLUTE MAN 2.65 K/mm3 (0.84-5.20); LYMPHOCYTES PERCENT MAN 30 % (21-46); METAMYELOCYTE ABSOLUTE MAN 0.08 K/mm3 (0.00-0.00); METAMYELOCYTE PERCENT MAN 1 % (0-0); MONOCYTES ABSOLUTE MAN 0.32 K/mm3 (0.16-1.47); MONOCYTES PERCENT MAN 4 % (4-13); NEUTROPHILS ABSOLUTE MAN 4.99 K/mm3 (1.96-9.15); SEG NEUTROPHILS PERCENT MAN 62 % (41-73); TOTAL CELLS COUNTED 100
--- NOTE | 2023-08-02 06:40 | NUR ---
SHIFT SUMMARY. PT HAS BEEN DOING WELL THROUGHOUT SHIFT, NO ACUTE CHANGES. CONTINUES TO SATURATE WELL ON ROOM AIR, CALLS APPROPRIATELY FOR ASSISTANCE, VITAL SIGNS STABLE. HR HAS MAINTAINED 30s-50s THROUGHOUT SHIFT, NO ACUTE CHANGES ON TELE AND NO EVENTS. NO REPORTED PAIN THROUGHOUT SHIFT. WOUND ON PT RECTUM HAS BEEN OPEN TO AIR THROUGHOUT SHIFT, SEE RELATED NOTE FOR DETAILS. PALLIATIVE CARE CONSULT PLACED EARLY THIS MORNING AFTER REVIEWING MOST RECENT NOTE FROM DR. MIN. AREA OF FOCUS INDICATED IN NOTE APPEARED TO BE POLSY FORMS. Q2 TURNS. HEAVY 2 PERSON TRANSFER FROM CHAIR TO BED. CONTINENT THIS SHIFT. BED LOCKED IN LOWEST POSITION. CALL LIGHT LEFT WITHIN REACH. CONTINUING TO MONITOR.
--- NOTE | 2023-08-02 07:30 | NUR ---
Initial assessment: Patient is awake lying in bed, he is alert and oriented x4. He denies pain at this time. HR regular, he has been in a Junctional Rhythm with a rate from the 30s-50s. A pacemaker was recommended but the patient refused. He is asymptomatic. LS CTA, Biox is 95% on RA. BT+, he has an illestomy to the right abd that is secure and draining loose stool. Patient has petiache like rash to right FA. He has what looks like a shear injury to his right lower back with the top layer of skin sheared off. He has scattered brusing to BUE and BLE. His face is dry with flaky skin. PPP, he has 1+ edema to BLE. He has a large pannus with some red irritation under his folds and in his groin. VSS. AM meds given at this time. Plan is for the patient to be discharged home today, he is concerned that he is not back at his baseline because he has a ramp to walk up at home and he hasn't been walking alot. I talked with him about therapy comign to see him but the plan was to discharge today. He is assisted to the chair with a 2 person assist to stand, patient is able to walk with minimal assistace with a walker. Call light in reach, patient is eating breakfast.
[2023-08-02 07:38] VITALS: BP 131/61
--- NOTE | 2023-08-02 11:09 | NUR ---
Discharge: Patients rental boats caretaker Eloise is at the bedside, devon from PT has come to see the patient. No new recommendations have been made so the plan is to go home with home health and possibly a wheel chair if needed. Patient has no new prescriptions and Eloise states he has a doctors appointment next week. Patient is assisted into the wheelchair, he is discharged home with caregiver. Her verbalized understanding of discharge instructions.
== END 2023-08-02 11:09 | disposition home or self-care (01) | DRG 308 ==
LOC: ER 10:58 → PCU 15:43
PROVIDERS: Emergency Medicine; Student in an Organized Health Care Education/Training Program; ADMIT Family Medicine
DX: R00.1 Bradycardia, unspecified (principal); U07.1 COVID-19; E87.1 Hypo-osmolality and hyponatremia; N18.4 Chronic kidney disease, stage 4 (severe); Z68.41 Body mass index [BMI] 40.0-44.9, adult; E11.22 Type 2 diabetes mellitus with diabetic chronic kidney disease; I12.9 Hypertensive chronic kidney disease with stage 1 through stage 4 chronic kidney disease, or unspecified chronic kidney disease; E66.01 Morbid (severe) obesity due to excess calories; D63.1 Anemia in chronic kidney disease; D69.6 Thrombocytopenia, unspecified; R22.41 Localized swelling, mass and lump, right lower limb; L27.0 Generalized skin eruption due to drugs and medicaments taken internally; T36.95XA Adverse effect of unspecified systemic antibiotic, initial encounter; R82.90 Unspecified abnormal findings in urine; Z79.84 Long term (current) use of oral hypoglycemic drugs; Z88.1 Allergy status to other antibiotic agents
CPT/HCPCS: 0241U; 36415; 71045; 80048; 80053; 81001; 82947; 83735; 85025; 87086; 93971; 97110; 97116; 97162; 97530; 99285-25; A9270; J1650; J1815

== ENCOUNTER 2023-08-18 08:11 | Emergency (ER) | payer MEDICARE ==
[~2023-08-18] VITALS: Ht 177.8 cm; Wt 104.3 kg
[~2023-08-18 08:11] MED LIST changes: +AMOCLA500 PO; +MUPIROCIN2210
[2023-08-18 08:52] LABS: BASOPHILS ABSOLUTE AUTO 0.06 K/mm3 (0.00-0.23); BASOPHILS PERCENT AUTO 1 % (0-2); EOSINOPHILS ABSOLUTE AUTO 0.16 K/mm3 (0.00-0.68); EOSINOPHILS PERCENT AUTO 2 % (0-6); Hematocrit 31.2 % (37.0-53.0); Hemoglobin 10.2 g/dL (13.5-17.5); IMMATURE GRAN ABSOLUTE AUTO 0.02 K/mm3 (0.00-0.10); IMMATURE GRAN PERCENT AUTO 0 % (0-1); LYMPHOCYTES ABSOLUTE AUTO 1.29 K/mm3 (0.84-5.20); LYMPHOCYTES PERCENT AUTO 17 % (21-46); MONOCYTES ABSOLUTE AUTO 0.53 K/mm3 (0.16-1.47); MONOCYTES PERCENT AUTO 7 % (4-13); Mean Corpuscular HGB 30.7 pg (26.0-34.0); Mean Corpuscular HGB Conc 32.7 g/dL (31.5-36.5); Mean Corpuscular Volume 94 fL (80-100); Mean Platelet Volume 10.9 fL (9.1-12.4); NEUTROPHILS ABSOLUTE AUTO 5.51 K/mm3 (1.96-9.15); NEUTROPHILS PERCENT AUTO 73 % (41-73); Platelet Count 140 K/mm3 (150-400); RDW Coefficient Variation 15.2 % (11.7-14.2); RDW Standard Deviation 51.7 fL (35.1-46.3); Red Blood Cell Count 3.32 M/mm3 (4.30-5.90); White Blood Cell Count 7.57 K/mm3 (4.00-11.30)
[2023-08-18 09:16] LABS: Albumin, Blood 2.6 g/dL (3.4-5.0); Albumin/Globulin Ratio 0.6 (0.8-1.8); Bilirubin, Total 0.7 mg/dL (0.1-1.0); Bun/Creatinine Ratio 35.8 (12.0-20.0); Creatinine, Blood 1.79 mg/dL (0.60-1.20); Globulin, Blood 4.1 g/dL (2.2-4.0); Potassium, Blood 5.4 mmol/L (3.5-5.5); Total Protein, Blood 6.7 g/dL (6.4-8.2)
[2023-08-18 10:30] VITALS: BP 165/69
== END 2023-08-18 10:53 | disposition home or self-care (01) ==
LOC: ER 08:11
PROVIDERS: Emergency Medicine
DX: R07.9 Chest pain, unspecified (principal); R00.1 Bradycardia, unspecified; D63.1 Anemia in chronic kidney disease; I12.9 Hypertensive chronic kidney disease with stage 1 through stage 4 chronic kidney disease, or unspecified chronic kidney disease; E11.22 Type 2 diabetes mellitus with diabetic chronic kidney disease; N18.30 Chronic kidney disease, stage 3 unspecified; E66.01 Morbid (severe) obesity due to excess calories; Z68.33 Body mass index [BMI] 33.0-33.9, adult; Z79.84 Long term (current) use of oral hypoglycemic drugs; Z79.899 Other long term (current) drug therapy; Z88.1 Allergy status to other antibiotic agents; Z91.048 Other nonmedicinal substance allergy status
CPT/HCPCS: 71045; 80053; 84484; 85025; 93005; 93010; 99285-25

== ENCOUNTER 2024-01-26 14:00 | Inpatient (IN) | payer MEDICARE ==
[~2024-01-26] VITALS: Ht 180.3 cm; Wt 118.4 kg
[2024-01-26] MEDS ORDERED: NS 1,000 ML IV SCH ×2 (15:10→15:30)
[2024-01-26 15:30] LABS: Calcium, Ionized (POC) 1.03 mmol/L (1.10-1.46); Chloride (POC) 116 mmol/L (98-108); Glucose (ISTAT POC) 88 mg/dL (70-99); Hemoglobin (POC) 10.2 g/dL (13.5-17.5); Sodium (POC) 137 mmol/L (135-148); Total CO2 (POC) 14 mmol/L (21-32)
[2024-01-26] MEDS ORDERED: CALCIUM GLUC IN NACL, ISO-OSM 50 ML IV ONE (15:35)
[2024-01-26 15:36] LABS: BASOPHILS ABSOLUTE AUTO 0.02 K/mm3 (0.00-0.23); BASOPHILS PERCENT AUTO 1 % (0-2); EOSINOPHILS ABSOLUTE AUTO 0.06 K/mm3 (0.00-0.68); EOSINOPHILS PERCENT AUTO 2 % (0-6); Hematocrit 30.8 % (37.0-53.0); Hemoglobin 9.9 g/dL (13.5-17.5); IMMATURE GRAN ABSOLUTE AUTO 0.02 K/mm3 (0.00-0.10); IMMATURE GRAN PERCENT AUTO 1 % (0-1); LYMPHOCYTES ABSOLUTE AUTO 1.08 K/mm3 (0.84-5.20); LYMPHOCYTES PERCENT AUTO 29 % (21-46); MONOCYTES ABSOLUTE AUTO 0.34 K/mm3 (0.16-1.47); MONOCYTES PERCENT AUTO 9 % (4-13); Mean Corpuscular HGB 30.1 pg (26.0-34.0); Mean Corpuscular HGB Conc 32.1 g/dL (31.5-36.5); Mean Corpuscular Volume 94 fL (80-100); Mean Platelet Volume 12.1 fL (9.1-12.4); NEUTROPHILS PERCENT AUTO 59 % (41-73); Platelet Count 59 K/mm3 (150-400); RDW Standard Deviation 54.7 fL (35.1-46.3); Red Blood Cell Count 3.29 M/mm3 (4.30-5.90); White Blood Cell Count 3.72 K/mm3 (4.00-11.30)
[2024-01-26 15:43] LABS: Ethanol (Alcohol), Blood, Med <3 mg/dL
[2024-01-26 15:50] LABS: Alanine Aminotransfer (ALT/SGP 22 U/L (12-78); Albumin/Globulin Ratio 0.9 (0.8-1.8); Alk Phos 119 U/L (50-136); Anion Gap 11 mmol/L (3-11); Aspartate Aminotrans (AST/SGOT 23 U/L (12-37); Bilirubin, Total 0.5 mg/dL (0.1-1.0); Blood Urea Nitrogen 92 mg/dL (8-24); Bun/Creatinine Ratio 48.4 (12.0-20.0); CO2, Blood 16 mmol/L (21-32); Calcium, Blood 7.6 mg/dL (8.5-10.1); Chloride, Blood 119 mmol/L (98-108); Globulin, Blood 3.5 g/dL (2.2-4.0); Glomerular Filtration Rate 35 (60-); Glucose, Blood 102 mg/dL (70-99); Potassium, Blood 6.9 mmol/L (3.5-5.5); Sodium, Blood 139 mmol/L (136-145); Total Protein, Blood 6.5 g/dL (6.4-8.2)
[2024-01-26] MEDS ORDERED: Albuterol 2.5 MG/3 ML VIAL INH SCH (16:05)
[2024-01-26] MEDS ORDERED: Dextrose 50% 50 ML Syringe IV ONE (16:10)
[2024-01-26] MEDS ORDERED: Insulin Regular 100 Unit/ML 1ML Dose IV ONE (16:10)
[2024-01-26 16:11] LABS: Source, Urine Clean Catch
[2024-01-26 16:50] LABS: Appearance, Urine Clear (Clear); Bilirubin, Urine Neg (Neg); Blood, Urine 5+ (Neg); Color, Urine Yellow (P-Yellow); Glucose Qualitative, Urine Neg (Neg); Ketones, Urine Neg (Neg); Leukocyte Esterase, Urine 2+ (Neg); Nitrite, Urine Neg (Neg); Protein, Urine 2+ (Neg); Specific Gravity, Urine 1.015 (1.003-1.022); Urobilinogen, Urine NORM (Normal)
[2024-01-26 17:04] LABS: Bacteria Few /hpf; Red Blood Cells, Urine 25-50 /hpf (0-2); Squamous Epithelial Cells Not Seen /hpf (Few)
[2024-01-26 17:31] LABS: Base Excess Venous -14.5 mmol/L; Bicarbonate Venous 13.9 mmol/L (24.0-30.0); PCO2 Venous 37.4 mmHg (38-42); pH Blood Venous 7.18 (7.34-7.37)
[2024-01-26] MEDS ORDERED: CefTRIAXone Sodium 2,000 MG in NS 100 ML IV ONE (17:55)
[2024-01-26] MEDS ORDERED: Acetaminophen 325 MG TABLET PO PRN (18:15)
[2024-01-26] MEDS ORDERED: Ondansetron HCl 2 MG / ML 2ML Vial IV PRN (18:15)
[2024-01-26] MEDS ORDERED: Albuterol 2.5 MG/3 ML VIAL INH PRN (18:15)
[2024-01-26] MEDS ORDERED: Sodium Bicarb 8.4% 1 MEQ/ML 50 ML Vial IV ONE (18:20)
[2024-01-26] MEDS ORDERED: Sodium Zirconium Cyclosilicate 10 GM Packet PO ONE (19:00)
[2024-01-26] MEDS ORDERED: Furosemide 10 MG/ML 4ML Vial IV SCH (19:00)
[2024-01-26 19:15] LABS: Bun/Creatinine Ratio 47.9 (12.0-20.0); Calcium, Blood 7.6 mg/dL (8.5-10.1); Creatinine, Blood 1.9 mg/dL (0.60-1.20); Potassium, Blood 5.5 mmol/L (3.5-5.5)
[2024-01-26 20:56] VITALS: BP 142/60
[2024-01-26] MEDS ORDERED: Gabapentin 300 MG Cap PO SCH (21:00)
[2024-01-26] MEDS ORDERED: Miconazole Nitrate 2% 85 GM PWD TOP SCH (21:00)
[2024-01-26] MEDS ORDERED: Amoxicillin/Clavulanate K 875 MG Tab PO SCH (21:00)
--- NOTE | 2024-01-26 23:05 | NUR ---
ARRIVAL TO PCU: PT ARRIVED TO PCU-10 VIA [place] AT APPROX 2000. PT SLID FROM [place] TO BED BY STAFF. ALERT, ORIENTED X4; POOR HISTORIAN. PT REQUESTS CALL TO CAREGIVER, VINH, TO DISCUSS DETAILS. PERRLA. NO UNILATERAL DEFICITS OBSERVED. PT ABLE TO USE CALL LIGHT TO COMMUNICATE NEEDS. HR 30-70'S, JUNCTIONAL RHYTHM ON TELE. BP STABLE, MAP >65. DENIES CHEST PAIN/PRESSURE. SPO2 >90% ON RA, RESPIRATIONS EVEN & UNLABORED. AFEBRILE. 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 SCATTERED BRUISING & ABRASIONS/SCABS T/O. DO CATH PLACED IN ED, W/ ORDERS TO CONTINUE DO CATH. OSTOMY TO RLQ, LOOSE BROWN OUTPUT. Q2HR REPOSITIONING IN PLACE. ORIENTED TO ROOM/UNIT/CALL LIGHT. NO OTHER NEEDS AT THIS TIME. CALL LIGHT IN REACH.
[2024-01-26 23:09] VITALS: BP 100/73
[2024-01-27 03:18] VITALS: BP 123/59
[2024-01-27 04:18] LABS: PCO2 Venous 30.1 mmHg (38-42); pH Blood Venous 7.27 (7.34-7.37)
[2024-01-27 04:19] LABS: Base Excess Venous -12.9 mmol/L; Bicarbonate Venous 15.2 mmol/L (24.0-30.0)
[2024-01-27 04:53] LABS: Bun/Creatinine Ratio 45.4 (12.0-20.0); Calcium, Blood 7.3 mg/dL (8.5-10.1); Creatinine, Blood 1.94 mg/dL (0.60-1.20); Potassium, Blood 4.6 mmol/L (3.5-5.5)
--- NOTE | 2024-01-27 05:44 | NUR ---
END OF SHIFT NOTE: NO ACUTE EVENTS FOLLOWING ARRIVAL TO PCU. PT HAS REMAINED A/OX4, ALTHOUGH WAKES UP CONFUSED AT TIMES. EASILY REDIRECTABLE. VSS. HR 50-60'S THIS AM, JUNCTIONAL RHYTHM ON TELE. BP STABLE, MAP >65. SPO2 >90% ON RA. BEDSIDE SWALLOW COMPLETED THIS SHIFT W/O ANY SIGNS OF ASPIRATION OBSERVED BY THIS RN. CBG 60'S THIS AM, JUICE GIVEN. CBG REMAINS IN 60'S, ICE CREAM GIVEN. REPEAT CBG 90'S. PT C/O NECK PAIN, ICE PACK PROVIDED PER PT REQUEST. DO CATH PATENT & DRAINING YELLOW URINE TO GRAVITY. OSTOMY CONTINUES TO PRODUCE LIGHT BROWN LOOSE STOOL. Q2HR REPOSITIONING. NO OTHER NEEDS AT THIS TIME. CALL LIGHT IN REACH, WILL REPORT TO ONCOMING DAY RN.
[2024-01-27] MEDS ORDERED: Insulin Human Lispro 100 Units/ML 3ML Syringe SC SCH (07:30)
[2024-01-27 09:00] VITALS: BP 135/111
[2024-01-27] MEDS ORDERED: Sodium Bicarbonate 650 MG Tab PO SCH (09:00)
[2024-01-27] MEDS ORDERED: Finasteride 5 MG Tab PO SCH (09:00)
[2024-01-27] MEDS ORDERED: Aspirin 81 MG Chew PO SCH (09:00)
[2024-01-27] MEDS ORDERED: Tamsulosin HCl 0.4 MG Cap PO SCH (09:00)
[2024-01-27] MEDS ORDERED: Heparin Sodium,Porcine 5,000 UNIT/0.5 ML SDV SC SCH (09:00)
[2024-01-27] MEDS ORDERED: FISH OIL 1,0001 EA10 PO (09:14)
[2024-01-27] MEDS ORDERED: ASCO500 PO (09:19)
[2024-01-27] MEDS ORDERED: ASPI81CH PO (09:20)
[2024-01-27] MEDS ORDERED: CENTRUM SILVER1 EAC2 PO (09:20)
[2024-01-27 16:43] VITALS: BP 114/68
--- NOTE | 2024-01-27 18:00 | NUR ---
SHIFT ASSESSMENT PT A&O TO SELF, FAMILY AND PLACE, MILD CONFUSION BUT EASILY REDIRECTABLE. DOES RECALL SOME OF WHAT LED UP TO THIS ADMIT. REMAINS QUITE WEAK BUT KAY TO COMMAND. C/O MILD L SHOULDER PAIN WITH MOVEMENT. CBG REMAINS STABLE T/O DAY. ON RA c SATS >90%. JUNCTIONAL RYTHM WITH BYRON INTO THE 30'S, DENIES CP. OSTOMY DRAINING LOOSE LIGHT BROWN STOOL. DO CATH PATENT, DRAINING YELLOW URINE. Q2HR TURNS, COCCYX WOUND ASSESSED WITH HOSPITALIST, CONTINUING PAST TREATMENT PLANS. PT NOW MED TELE STATUS.
[2024-01-27 19:25] VITALS: BP 118/73
[2024-01-28 04:00] VITALS: BP 85/71
[2024-01-28 04:37] LABS: Bun/Creatinine Ratio 44.2 (12.0-20.0); Calcium, Blood 7.6 mg/dL (8.5-10.1); Creatinine, Blood 1.9 mg/dL (0.60-1.20); Potassium, Blood 4.1 mmol/L (3.5-5.5)
--- NOTE | 2024-01-28 06:20 | NUR ---
1915 Assumed care of pt, bedside report completed. Shift plan of care reviewed with pt, all questions answered. Pt slept well this shift, allowing only moderate shifts of weight rather than full complete turns. Pt awakens mildly confused though is easily reoriented and able to redirect as needed. Once awake pt is back to baseline neuro status. Showing Sinus Frank/Junctional on the monitor. While sleeping HR dips to as low as 28 bpm. BP is soft though stable, MD notified. Pt declines pacer maker so plan is to monitor at this time. Pt denies pain throughout the shift, reports he feels ekaterina to his baseline status. Please see full assesment for additional details. No further complaints or concerns at this time, will continue to monitor.
[2024-01-28 07:38] VITALS: BP 99/75
[2024-01-28 15:21] VITALS: BP 95/42
[2024-01-28] MEDS ORDERED: Midodrine 5 MG Tab PO ONE (16:00)
[2024-01-28 16:56] VITALS: BP 108/70
--- NOTE | 2024-01-28 17:50 | NUR ---
SHIFT SUMMARY PT AWAKENS TO VERBAL STIMULI THIS AM. ALERT THIS AFTERNOON. USES CALL LIGHT APPROPRIATELY. SP02>90% ON RA. TELEMETRY SHOWS JUNCTIONAL, BYRON, HR 22-40'S. BP SOFT THIS SHIFT. CALL PLACED TO MD LEIVA. MD LEIVA W/ ORDERS FOR MIDODRINE, SEE FOLLOWUP VITALS. REPOSITIONED Q2H. CHRONIC DO CATHETER DRAINING YELLOW URINE TO GRAVITY. COLOSTOMY W/ LIGHT BROWN LIQUID OUTPUT, EMPTIED THIS SHIFT. CBG 68 THIS AM. PT ATE WELL TODAY, MOST RECENT CBG 138. PT'S BROTHER, JCARLOS, AND MECCA POA VISITED TODAY FOR THE AFTERNOON. PT RESTING IN ROOM WATCHING TV. CALL LIGHT IN REACH.
[2024-01-28 19:51] VITALS: BP 113/48
[2024-01-29 04:09] LABS: Bun/Creatinine Ratio 41.8 (12.0-20.0); Calcium, Blood 7.9 mg/dL (8.5-10.1); Creatinine, Blood 2.2 mg/dL (0.60-1.20); Potassium, Blood 4.4 mmol/L (3.5-5.5)
--- NOTE | 2024-01-29 04:42 | NUR ---
1915 Assumed care of pt, bedside report completed. Shift plan of care reviewed with pt, all questions answered. Pt with uneventful shift, appears to have slept well. Denies significant pain and pain reported is relieved with repositioning. Pt continues in junctional rhythm HR as low as 25bpm for a very brief moment, HR mostly 30s while asleep and 40-60s when awake. MDs have been aware and pt declined pacemaker in the past. DNR status with armband in place. VSS and pt [id number] to be at baseline mentation. Colostomy appliance was leaking, full change of appliance completed. Full adherance may be difficult to obtain due to body habitus and heavy texturing ofr abd skin. Prior to admit coccyx wound dressign CDI, and pannus moisture related excoriation cleaned and new silver antimicrobial dressing placed. Please see full assessment for additional details. No further complaints or concerns at this time, will continue to monitor.
[2024-01-29 07:40] VITALS: BP 97/55
[2024-01-29] MEDS ORDERED: Midodrine 5 MG Tab PO SCH (09:00)
[2024-01-29 09:17] VITALS: BP 88/47
[2024-01-29] MEDS ORDERED: AMOCLA875 PO (10:00)
[2024-01-29] MEDS ORDERED: MIDODRINE HCL10 M2 PO (10:01)
[2024-01-29] MEDS ORDERED: SODBIC650 PO (10:02)
--- NOTE | 2024-01-29 12:08 | NUR ---
DISCHARGE SUMMARY PATIENT ALERT, ORIENTED x3-4. PATIENT MAKING NEEDS KNOWN TO STAFF. PATIENT ON TELE READING JUNCTIONAL RHYTHM, 20-30s. PATIENT HYPOTENSIVE, MIDODRINE STARTED THIS MORNING. DO WAS REMOVED, CLEAR YELLOW URINE OUT. COLOSTOMY CHANGED PRIOR TO DISCHARGE, PATIENT SENT HOME WITH UNUSED SUPPLIES. CAREGIVERS AT BEDSIDE GIVEN DISCHARGE INSTRUCTIONS. CAREGIVERS REMOVED COCCYX DRESSING PATIENT WAS DISCHARGING AND STATED "WE WILL NOT BE USING THIS DRESSING, WE FOLLOW THE DOCTORS ORDERS". PATIENT ABLE TO STAND AND AMBULATE TO WHEELCHAIR. CAREGIVERS WALKED PATIENT OUT.
== END 2024-01-29 12:00 | disposition home or self-care (01) | DRG 91 ==
LOC: ER 14:00 → PCU 14:01
PROVIDERS: Emergency Medicine; Internal Medicine; Nurse Practitioner Acute Care; ADMIT Internal Medicine
PROC: 0T9B70Z Drainage of Bladder with Drainage Device, Via Natural or Artificial Opening (ICD-10-PCS; principal; 2024-01-27)
DX: G92.8 Other toxic encephalopathy (principal); L89.154 Pressure ulcer of sacral region, stage 4; E87.20 Acidosis, unspecified; I50.32 Chronic diastolic (congestive) heart failure; I13.0 Hypertensive heart and chronic kidney disease with heart failure and stage 1 through stage 4 chronic kidney disease, or unspecified chronic kidney disease; N18.30 Chronic kidney disease, stage 3 unspecified; E11.22 Type 2 diabetes mellitus with diabetic chronic kidney disease; Z66 Do not resuscitate; E87.5 Hyperkalemia; D69.6 Thrombocytopenia, unspecified; E87.6 Hypokalemia; K13.79 Other lesions of oral mucosa; N40.0 Benign prostatic hyperplasia without lower urinary tract symptoms; Z86.73 Personal history of transient ischemic attack (TIA), and cerebral infarction without residual deficits; R00.1 Bradycardia, unspecified; E87.70 Fluid overload, unspecified; E66.01 Morbid (severe) obesity due to excess calories; Z87.11 Personal history of peptic ulcer disease; Z88.1 Allergy status to other antibiotic agents; Z88.8 Allergy status to other drugs, medicaments and biological substances; Z93.2 Ileostomy status; E11.649 Type 2 diabetes mellitus with hypoglycemia without coma; Z68.30 Body mass index [BMI] 30.0-30.9, adult; E11.622 Type 2 diabetes mellitus with other skin ulcer
CPT/HCPCS: 36415; 51702; 70450; 71045; 80047; 80048; 80053; 81001; 82140; 82533; 82803; 82947; 83036; 83605; 83735; 83880; 84145; 84439; 84443; 84484; 85014; 85025; 87086; 92953; 93005; 93010; 93306; 94644; 94664; 94760; 94762; 96361-59; 96365-59; 96366-59; 96372; 96375-59; 96376; 99285-25; A9270; G0378; G0480; J0612; J0696; J1644; J1815; J1940; J7030

== ENCOUNTER 2024-01-31 10:54 | Inpatient (IN) | payer MEDICARE ==
[2024-01-31] VITALS (33 sets, daily range): BP systolic 69–199; BP diastolic 37–106
[~2024-01-31] VITALS: Ht 172.7 cm; Wt 121.2 kg
[~2024-01-31 10:54] MED LIST changes: +AMOCLA875 PO; +ASPI81CH PO; +CENTRUM SILVER1 EAC2 PO; +FISH OIL 1,0001 EA10 PO; +MIDODRINE HCL10 M2 PO; +SODBIC650 PO
[2024-01-31 11:47] LABS: Hematocrit 34.1 % (37.0-53.0); Hemoglobin 11.2 g/dL (13.5-17.5); Mean Corpuscular HGB 29.8 pg (26.0-34.0); Mean Corpuscular HGB Conc 32.8 g/dL (31.5-36.5); Mean Corpuscular Volume 91 fL (80-100); RDW Coefficient Variation 16.5 % (11.7-14.2); RDW Standard Deviation 54.4 fL (35.1-46.3); Red Blood Cell Count 3.76 M/mm3 (4.30-5.90); White Blood Cell Count 3.37 K/mm3 (4.00-11.30)
[2024-01-31 11:59] LABS: Platelet Count 25 K/mm3 (150-400)
[2024-01-31 12:07] LABS: Albumin, Blood 2.8 g/dL (3.4-5.0); Albumin/Globulin Ratio 0.7 (0.8-1.8); Bilirubin, Total 2.1 mg/dL (0.1-1.0); Bun/Creatinine Ratio 36.3 (12.0-20.0); Potassium, Blood 5.1 mmol/L (3.5-5.5); Total Protein, Blood 6.8 g/dL (6.4-8.2)
[2024-01-31 12:14] LABS: Source, Urine Foley catheter
[2024-01-31 12:29] LABS: Appearance, Urine Hazy (Clear); Bilirubin, Urine Neg (Neg); Blood, Urine 5+ (Neg); Color, Urine Yellow (P-Yellow); Glucose Qualitative, Urine Neg (Neg); Ketones, Urine 1+ (Neg); Leukocyte Esterase, Urine 3+ (Neg); Nitrite, Urine Neg (Neg); Protein, Urine 3+ (Neg); Specific Gravity, Urine 1.025 (1.003-1.022); Urobilinogen, Urine NORM (Normal)
[2024-01-31] MEDS ORDERED: NS 1,000 ML IV SCH ×3 (12:35)
[2024-01-31 12:37] LABS: BAND PERCENT MAN 1 % (0-8); BASOPHILS PERCENT MAN 0 % (0-2); EOSINOPHILS PERCENT MAN 3 % (0-6); LYMPHOCYTES % ATYPICAL MANUAL 1 % (0-0); LYMPHOCYTES PERCENT MAN 14 % (21-46); METAMYELOCYTE ABSOLUTE MAN 0.03 K/mm3 (0.00-0.00); METAMYELOCYTE PERCENT MAN 1 % (0-0); MONOCYTES ABSOLUTE MAN 0.13 K/mm3 (0.16-1.47); MONOCYTES PERCENT MAN 4 % (4-13); NEUTROPHILS ABSOLUTE MAN 2.59 K/mm3 (1.96-9.15); SEG NEUTROPHILS PERCENT MAN 76 % (41-73); TOTAL CELLS COUNTED 100
[2024-01-31] MEDS ORDERED: Piperacillin/Tazobactam Sod 4.5 GM in NS 100 ML IV ONE (12:40)
[2024-01-31 12:52] LABS: Amorphous Mod (0-Heavy); Bacteria Many /hpf; Red Blood Cells, Urine 25-50 /hpf (0-2); Squamous Epithelial Cells Few /hpf (Few); White Blood Cells, Urine 25-50 /hpf (0-5)
[2024-01-31] MEDS ORDERED: Ondansetron HCl 2 MG / ML 2ML Vial IV ONE (13:40)
[2024-01-31] MEDS ORDERED: Acetaminophen 325 MG TABLET PO PRN (14:15)
[2024-01-31] MEDS ORDERED: Ondansetron HCl 2 MG / ML 2ML Vial IV PRN (14:15)
[2024-01-31] MEDS ORDERED: Sodium Bicarb 8.4% Inj 100 MEQ in Sodium Chloride 0.45% 1,000 ML IV SCH (14:40)
[2024-01-31] MEDS ORDERED: Midodrine 5 MG Tab PO SCH (15:00)
[2024-01-31] MEDS ORDERED: Piperacillin/Tazobactam Sod 2.25 GM in NS 50 ML IV SCH (18:00)
--- NOTE | 2024-01-31 18:37 | NUR ---
DR. LEIVA CALLED AND UPDATED ON PATIENT STATUS. INFORMED THAT PATIENT UP TO LEVOPHED OF 10 MCG/ MINUTE AND THAT NOW TO 6 MCG/ MINUTE. INFORMED THAT RECEIVED 2100 MLS IN ED AND NOW HAS BICARB AT 100 MLS/ HOUR. INFORMED THAT PATIENT HAS ONLY HAD 10 MLS URINE OUTPUT. INFORMED THAT HR CONTINUES TO KEEP BRADYING DOWN TO 30S BUT THEN POPS BACK UP. ORDERED FOR ATROPINE FOR BP AND TO USE DOPAMINE IF LEVOPHED NOT WORKING. NO OTHER ORDERS RECEIVED AT THIS TIME.
[2024-01-31] MEDS ORDERED: Atropine Sulfate 0.1 MG/ML 10ML SYR IV PRN (18:40)
--- NOTE | 2024-01-31 19:15 | NUR ---
SHIFT SUMMARY PATIENT ARRIVED TO UNIT AROUND 1615 FROM ED. PATIENT HAS REMAINED ALERT AND ORIENTED TO ALL QUESTIONS EXCEPT YEAR. PATIENT DOES STATE THAT HE "SEE PEOPLE IN HIS ROOM BUT KNOWS THEY ARE NOT THERE". PATIENT ALSO STATED WHEN HE FIRST ARRIVED THAT HE "FELT DRUNK BUT WAS NOT". SPEECH SLURRED. PATIENT WEAK BUT ABLE TO MOVE ALL EXTREMITIES. PATIENT HYPOTHERMIC WITH BAIRHUGGER IN PLACE. CORE TEMP NOW UP TO 93.3 DEGREES FAHRENHEIT. NO COMPLAINTS OF PAIN SINCE ARRIVAL. PATIENT HAS REMAINED SATTING 90% AND GREATER ON RA. HR 30S TO 70S. SBP 70S TO 130S. LEVOPHED TITRATING TO KEEP MAPS 65 AND GREATER. OSTOMY TO ABD. DO ONLY DRAINED [address] LEIVA AWARE OF URINE OUTPUT AND HR. WOUND CARE PERFORMED AND PICS PLACED IN PATIENT CHART. BICARB INFUSING AT 100 MLS/ HOUR. FAMILY IN TO VISIT. BED LOW, CALL LIGHT IN REACH. REPORT GIVEN TO ASSUMING ELECTRIC VEHICLE ELECTRICIAN NURSE.
--- NOTE | 2024-01-31 19:32 | NUR ---
ASSESSMENT/ASSUMED CARE PT SITTING UP IN BED TALKING WITH FAMILY. DENIES PAIN OR DISCOMFORT. ABLE TO TELL WHY HE IS AT THE HOSPITAL. SAYS THE DATE IS AND YEAR IS 2025. REORIENTED TO DATE AND YEAR. PT HAVING HALLUCINATIONS ABOUT PEOPLE BEING IN HIS ROOM THAT HAVE . FAMILY (VINH) STATES,"HE HAS BEEN DOING THAT FOR A WHILE NOW". VINH AGREED TO A CENTAL LINE IF NEEDED FOR PRESSORS. REFUSED PASS MAKER. STATES."WE ARE HEADING TO COMFORT CARE, BUT ARE GIVING HIM SOME TIME WITH THE MEDS". PT REPOSITIONED TO KEEP OFF COCCYX. COCCYX DRSG INTACT. NA BICARB AT 100 ML/HR AND LEVOPHED AT 7 MCQ/MIN TO KEEP MAP GREATER THAN 65. DO CATH PATENT DRAINING YELLOW URINE. COLOSTOMEY WITH GREEN SOFT STOOL-EMPTIED. APPLIANCE INTACT. DNR BAND IS ON PT. CONFIRMED WITH FAMILY DNR STATUS.
[2024-01-31] MEDS ORDERED: Lactobacil 2-S.Thermo-Bifido 1 1 Cap PO SCH (21:00)
[2024-01-31] MEDS ORDERED: Miconazole Nitrate 2% 85 GM PWD TOP SCH (21:00)
[2024-01-31] MEDS ORDERED: NS 250 ML IV PRN (23:25)
[2024-02-01] VITALS (57 sets, daily range): BP systolic 60–177; BP diastolic 31–145
[2024-02-01 04:16] LABS: Hematocrit 29.3 % (37.0-53.0); Hemoglobin 9.7 g/dL (13.5-17.5); Mean Corpuscular HGB 29.9 pg (26.0-34.0); Mean Corpuscular HGB Conc 33.1 g/dL (31.5-36.5); Mean Corpuscular Volume 90 fL (80-100); NRBC ABSOLUTE 0.05 K/mm3 (0.00-0.02); NRBC Auto 1.4 /100 WBC (0.0-0.2); RDW Coefficient Variation 16.3 % (11.7-14.2); RDW Standard Deviation 54.1 fL (35.1-46.3); Red Blood Cell Count 3.24 M/mm3 (4.30-5.90); White Blood Cell Count 3.62 K/mm3 (4.00-11.30)
[2024-02-01 04:34] LABS: Platelet Count 33 K/mm3 (150-400)
[2024-02-01 04:37] LABS: Bun/Creatinine Ratio 30.8 (12.0-20.0); Calcium, Blood 7.3 mg/dL (8.5-10.1); Creatinine, Blood 3.28 mg/dL (0.60-1.20); Potassium, Blood 5.4 mmol/L (3.5-5.5)
[2024-02-01 04:43] LABS: BAND PERCENT MAN 3 % (0-8); BASOPHILS PERCENT MAN 0 % (0-2); EOSINOPHILS ABSOLUTE MAN 0.07 K/mm3 (0.00-0.68); EOSINOPHILS PERCENT MAN 2 % (0-6); LYMPHOCYTES % ATYPICAL MANUAL 1 % (0-0); LYMPHOCYTES PERCENT MAN 13 % (21-46); MONOCYTES ABSOLUTE MAN 0.07 K/mm3 (0.16-1.47); MONOCYTES PERCENT MAN 2 % (4-13); NEUTROPHILS ABSOLUTE MAN 2.96 K/mm3 (1.96-9.15); SEG NEUTROPHILS PERCENT MAN 79 % (41-73); TOTAL CELLS COUNTED 100
--- NOTE | 2024-02-01 04:50 | NUR ---
BLOOD GLUCOSE ON LABS DOWN TO 68 WITH BICARB GTT INFUSING. NOTIFIED DR HAIDER. OBTAINED ORDERS FOR D50 ONE AMP.
[2024-02-01] MEDS ORDERED: Dextrose 50% 50 ML Vial IV ONE (04:55)
--- NOTE | 2024-02-01 05:58 | NUR ---
SHIFT SUMMARY PT RESTING QUIETLY DURING THE NIGHT. AWAKENS EASILY. CONFUSED AND HALLUCINATING. PT STATES,"SOME WOMEN KIDNAPPED ME AND TOOK MY CLOTHES". REORIENTED TO PLACE AND WHAT IS GOING ON. PT REPOSITIONED SIDE TO SIDE Q2HR TO KEEP OFF COCCYX. COLOSTOMY WITH SOFT STOOL OUTPUT. DO DRAINING YELLOW URINE. POOR URINE OUTPUT. LEVOPHED OFF MOST OF THE NIGHT. RESTARTED AT 2 MCQ/MIN THIS MORNING DUE TO LOW BP. PT HAVING BRADYCARDIA WHILE SLEEPING DOWN INTO THE 30'S. REPORT TO ON COMING NURSE
[2024-02-01] MEDS ORDERED: Pantoprazole Sodium 40 MG Injection IV SCH (06:00)
[2024-02-01 08:49] LABS: Albumin, Blood 2.6 g/dL (3.4-5.0); Albumin/Globulin Ratio 0.8 (0.8-1.8); Bilirubin, Direct 1.4 mg/dL (0.0-0.3); Bilirubin, Indirect 0.3 mg/dL (0.1-0.7); Bilirubin, Total 1.7 mg/dL (0.1-1.0); Globulin, Blood 3.2 g/dL (2.2-4.0); Total Protein, Blood 5.8 g/dL (6.4-8.2)
[2024-02-01] MEDS ORDERED: Ascorbic Acid 500 MG Tab PO SCH (09:00)
[2024-02-01] MEDS ORDERED: Multivitamins/Minerals 1 Tab PO SCH (09:00)
[2024-02-01] MEDS ORDERED: Tamsulosin HCl 0.4 MG Cap PO SCH (09:00)
[2024-02-01] MEDS ORDERED: Finasteride 5 MG Tab PO SCH (09:00)
[2024-02-01] MEDS ORDERED: Omega-3 Acid Ethyl Esters 1,000 MG CAP PO SCH (09:00)
--- NOTE | 2024-02-01 12:33 | NUR ---
REASSESSMENT PT HAS BEEN IN BED VISITING WITH FRIENDS AND FAMILY THROUGHOUT THE MORNING. HIS BP HAS BEEN DIFFICULT TO ACCURATELY MEASURE WITH PT'S TREMORS. LEVOPHED TITRATED OFF THIS MORNING AND MIDODRINE GIVEN. HR GOES BETWEEN SINUS BYRON IN THE 50S AND JUNCTIONAL IN THE 30S AND 40S. PT IS ASYMPTOMATIC WITH CHANGES. PT IS ALERT, ORIENTED TO PERSON AND VISITORS. FREQUENTLY FORGETS THAT HE IS IN THE HOSPITAL. LUNGS ARE CLEAR, RA. PT ATE BREAKFAST WITH ASSISTANCE AND IS NPO NOW FOR HIS ABDOMINAL ULTRASOUND. DO WITH SCANT OUTPUT. PT'S NIECE UPDATED BY NURSING STAFF AND DR. LEIVA.
[2024-02-01] MEDS ORDERED: FentaNYL Citrate 50 MCG/ML 2 ML Injection IV ONE (13:00)
[2024-02-01] MEDS ORDERED: Bumetanide 0.25 MG/ML 4ML ViaL IV SCH (14:00)
--- NOTE | 2024-02-01 14:09 | NUR ---
Pt and his brother have a close relationship with their caregiver Yluia Roman and have identified her as their proxy and decision maker. Yulia has been caring for the patient for approximately 13 years, and has been named in Eliseo's will as his executor as well. Yulia agrees that if the pt's health status doesn't improve with lasix, they will place him on comfort care.
[2024-02-01] MEDS ORDERED: Atropine Sulfate 1% Opth Soln 2ML BTL SL PRN (17:45)
[2024-02-01] MEDS ORDERED: Scopolamine Hydrobromide Patch TOP PRN (17:50)
[2024-02-01] MEDS ORDERED: LORazepam 1 MG Tab PO PRN (17:50)
[2024-02-01] MEDS ORDERED: Morphine Sulfate 20 MG/1ML 1 ML Oral Syringe SL PRN (17:50)
[2024-02-01] MEDS ORDERED: Promethazine HCl 25 MG Tab PO PRN (17:50)
[2024-02-01] MEDS ORDERED: Promethazine HCl 25 MG Supp PR PRN (17:50)
--- NOTE | 2024-02-01 17:54 | NUR ---
SHIFT SUMMARY PT WAS ALERT, ORIENTED TO HIMSELF THIS MORNING, BUT HAS BEEN DIFFICULT TO WAKE UP THIS EVENING. HE RECEIVED A DOSE OF BUMEX THIS AFTERNOON, BUT ONLY HAD ABOUT 50CC OF VERY DARK URINE OUT. LEVOPHED HAD TO BE RESTARTED THIS EVENING FOR MAP UNDER 65. HIS HR HAS BEEN IN THE 30S AND 40S THIS AFTERNOON, BUT HAS BEEN DIPPING INTO THE 20S THIS EVENING. DR. LEIVA AWARE AND SPOKE TO FAMILY AND CAREGIVER. FAMILY DECIDED TO MAKE PT COMFORT CARE. ORDERS BEING PROCESSED NOW AND THEN WILL STOP LEVOPHED AND IV FLUIDS. PLAN OF CARE DISCUSSED WITH FAMILY AT THE BEDSIDE AND QUESTIONS ANSWERED.
--- NOTE | 2024-02-01 19:12 | NUR ---
ASSUMED CARE OF PT AT 1900. REPORT RECEIVED AT BEDSIDE. PT PRESENTS IN BED. FAMILY GATHERED AROUND. HAS BEEN PREVIOUSLY MEDICATED FOR COMFORT WITH GOOD RESULTS. WILL REVIEW CHART AND PLAN OF CARE.
--- NOTE | 2024-02-01 22:40 | NUR ---
PT TRANSFERRED TO ROOM 353 AT 2207. PT PREMEDICATED WITH 10MG ROXANOL TO EASE TRANSITION. FAMILY AWARE OF PT TRANSFER AND WILL MEET PT AT NEW ROOM. EMPTIED COLOSTOMY OF 200 ML STOOL. PT IN NO APPARENT DISTRESS AT TIME OF TRANSFER.
--- NOTE | 2024-02-02 07:02 | NUR ---
SEAT JOINER PATIENT IS COMFORT CARE. TRANSFER FROM ICU TO [facility] LASTNIGHT. CAME TO HOSPITAL WITH CONFUSION, BLURR VISION AND HYPOTENSION SHOCK, UTI. PATIENT HAS MULTIPLE OPEN WOUNDS TO ABDD FOLDS AND GROIN, PODWER WAS APPLIED. PATIENT COMPLAIND OF PAIN AND PRN MORPHINE WAS GIVEN. FAMILY IS AT BEDSIDE.
--- NOTE | 2024-02-02 17:05 | NUR ---
SHIFT SUMMARY PT RESTING QUIETLY DURING SHIFT REPORT WITH FAMILY AT BS. PT ON COMFORT CARE WITH PT TO D/C HOME ON HOSPICE PER FAMILY AND JUNIOR FINANCIAL ANALYST ARRANGEMENTS. PT MEDICATED THRU OUT SHIFT FOR C/O PAIN AND LATER MOANS AND RESTLESSNESS. MULTIPLE FAMILY IN AND OUT OF THRU OUT THE DAY. CURRENTLY NO VISITORS AT BS. PT POSITIONED FOR COMFORT AND RESTING QUIETLY AT THIS TIME. WILL CONTINUE TO . BED ALARM ON FOR SAFETY.
--- NOTE | 2024-02-02 18:03 | NUR ---
ASSESSED PATIENT WITH SUPERVISOR EDUCATION. WE DISCUSSED HOW HE HAS BEEN DOING THIS SHIFT. SHE REPORTED THAT HE WAS MORE ALERT THIS MORNING BUT HAS BEEN SLEEPING MUCH OF THIS AFTERNOON AND MORE DIFFICULT TO AROUSE. HE WAS SHOWING SIGNS OF DISCOMFORT AND CHECKED WITH RN ABOUT MEDICATIONS FOR PAIN CONTROL. DISCUSSED CASE WITH CARE COORDINATION AND UPDATED ABOUT HIS STATUS. WOULD RECOMEND REASSESSING IF PATIENT IS STABLE ENOUGH TO TRANSPORT AFTER PAIN LOWER. DISCUSSED WITH PROVIDER.
--- NOTE | 2024-02-03 05:37 | NUR ---
CHEMICAL RESEARCH TECHNICIAN CCOMFORT CARE PATIENT: PATIENT IS ONLY RESPONSIVE TO PAIN, PRN PAIN MED ADMINISTERED DURING THE SHIFT, TURN AND REPOSITION. FAMILY NUMBER IS ON THE BOARD AND ASKED TO CALL IF ANY CHANGES NOTED WITH PATTIIENT. HAS A DO CATHETER IN.
--- NOTE | 2024-02-03 16:15 | NUR ---
PATIENT PRONOUNCED AT 1600. CAITLIN HERNANDEZ RN 2ND NURSE VERIFY. FRIEND EDWIN IN ROOM AT TIME PATIENT . WHILE NURSE PRONOUNCING EDWIN CALLS FAMILY TO LET THEM KNOW AND CALLS CAREGIVERS WHO WILL COME IN TO ASSIST IN MAKING ARRANGEMENTS FOR PATIENT HOME.
== END 2024-02-03 16:00 | DRG 871 ==
LOC: ER 10:54 → ICUE 14:13 → MEDS 02-01 22:12
PROVIDERS: Physician Assistant; ADMIT Internal Medicine
PROC: 3E033XZ Introduction of Vasopressor into Peripheral Vein, Percutaneous Approach (ICD-10-PCS; principal; 2024-01-31)
PROC: 0T9B70Z Drainage of Bladder with Drainage Device, Via Natural or Artificial Opening (ICD-10-PCS; 2024-01-31)
DX: R57.1 Hypovolemic shock (principal); G92.8 Other toxic encephalopathy; L89.154 Pressure ulcer of sacral region, stage 4; N17.9 Acute kidney failure, unspecified; I50.32 Chronic diastolic (congestive) heart failure; E87.20 Acidosis, unspecified; N39.0 Urinary tract infection, site not specified; I13.0 Hypertensive heart and chronic kidney disease with heart failure and stage 1 through stage 4 chronic kidney disease, or unspecified chronic kidney disease; Z68.41 Body mass index [BMI] 40.0-44.9, adult; Z51.5 Encounter for palliative care; Z66 Do not resuscitate; N18.30 Chronic kidney disease, stage 3 unspecified; E11.22 Type 2 diabetes mellitus with diabetic chronic kidney disease; Z86.73 Personal history of transient ischemic attack (TIA), and cerebral infarction without residual deficits; D69.6 Thrombocytopenia, unspecified; E66.01 Morbid (severe) obesity due to excess calories; N40.0 Benign prostatic hyperplasia without lower urinary tract symptoms; Z87.11 Personal history of peptic ulcer disease; Z90.49 Acquired absence of other specified parts of digestive tract; Z98.890 Other specified postprocedural states; Z93.2 Ileostomy status; Z88.1 Allergy status to other antibiotic agents; Z88.8 Allergy status to other drugs, medicaments and biological substances; Z91.048 Other nonmedicinal substance allergy status; Z79.82 Long term (current) use of aspirin; Z79.899 Other long term (current) drug therapy; Z93.3 Colostomy status; E11.649 Type 2 diabetes mellitus with hypoglycemia without coma; B95.2 Enterococcus as the cause of diseases classified elsewhere
CPT/HCPCS: 36415; 51702; 51798; 76700; 80053; 81001; 82248; 82947; 83605; 83690; 85025; 87040; 87077; 87086; 87186; 93005; 93010; 96365; 96375; 99285-25; A9270; C9113; J2405; J2543; J3010; J7030; J7050; J7060; J7799